=== PATIENT | female | born 1990 | race Caucasian/White ===

== ENCOUNTER 2017-02-04 17:52 | Emergency (ER) | payer SELFPAY ==
[~2017-02-04] VITALS: Ht 157.5 cm; Wt 64.4 kg
[~2017-02-04 17:52] MED LIST: CIPRO 500MG TA500 MG PO; FERROUS SULFAT325 M1 PO; FLAGYL500 MG PO; MACROBID 100MG100 MG PO; MOTRIN 400MG.400 MG PO; NICOTINE T21 MG/24 H TD; NOMEDS XX; PERCOCET 5/3251 EACH PO; PNV PRENATAL PL1 TAB PO; PRENATAL VITAMI1 TA3 PO; VICODIN 5/500 T1 TAB PO
--- OUTSIDE RECORDS SUMMARY | 2017-02-04 18:26 | External Medical Summary Rpt ---
Author Author , Organization [employer] Address Unknown Phone Unavailable Care Team Providers Care Apple Picker Name Role Phone ALSTON CHR, ALSTON CHR Unavailable Unavailable BEINEKE ANDRA, BEINEKE Unavailable Unavailable ANDRA LOVING ALL, LOVING ALL Unavailable Unavailable BRACKEN LELE, BRACKEN Unavailable Unavailable LELE SANDRA ANDRA, SANDRA Unavailable Unavailable ANDRA CLARK AGUSTO, CLARK AGUSTO Unavailable Unavailable LOZADA DON, LOZADA DON Unavailable Unavailable CHIPPS PONCHO & Unavailable Unavailable DUBILIER, [facility] DUBILIER IVEY MARCEL, IVEY Unavailable Unavailable MARCEL PRADO MAR, Unavailable Unavailable PRADO MAR [facility] Unavailable Unavailable PHYSICIANS, [facility] COPPAGE, ALVIN H, Unavailable Unavailable COPPAGE, ALVIN H [facility], Unavailable Unavailable [facility] JULIEN JORGE, Unavailable Unavailable JULIEN JORGE [facility] # [id number], Unavailable Unavailable [facility] # [id number] KIMMY, MARIHELEN, Unavailable Unavailable KIMMY, MARIHELEN FEEBACK REE, FEEBACK Unavailable Unavailable REE ALDEN ANT, ALDEN Unavailable Unavailable ANT LISSETH ZIMMER, Unavailable Unavailable LISSETH ZIMMER DARNELL, MAYO Unavailable Unavailable DARNELL MAYO DARNELL, MAYO Unavailable Unavailable DARNELL KARINE ANDUJAR MD, Unavailable Unavailable KARINE ANDUJAR MD MILDRED DARNELL, MILDRED DARNELL Unavailable Unavailable HUMPHREY EDW, HUMPHREY EDW Unavailable Unavailable PIETER HUMPHREY HALL, Unavailable Unavailable PIETER Hunter HARPEL MADALYN, HARPEL Unavailable Unavailable MADALYN [facility] Unavailable Unavailable INC, [facility] Unavailable Unavailable CARE, [place], [facility], IN [facility], Unavailable Unavailable [facility] KRISTINA CHAUDHARY, KRISTINA CHAUDHARY Unavailable Unavailable [facility] # Unavailable Unavailable [id number], [facility] # [id number] LOWE LELE, LOWE LELE Unavailable Unavailable MCDANIEL EMMA, MCDANIEL Unavailable Unavailable KAVON GURROLA Unavailable Unavailable HEIDI, HEIDI Unavailable Unavailable NATALIE BELTRE, NATALIE Unavailable Unavailable MARGO GREY HILTON, Unavailable Unavailable MARGO Ruiz OAK ALL, OAK ALL Unavailable Unavailable OSTERLUND MAR, Unavailable Unavailable [facility] PARK LATRELL, PARK LATRELL Unavailable Unavailable [facility], Unavailable [facility]available [facility], [facility] Unavailable [facility]available [facility] Unavailable Unavailable [facility], Unavailable Unavailable [facility] Unavailable Unavailable [facility], [facility] ELISABETH THO, ELISABETH Unavailable Unavailable THO GAVIRIA JOSH, GAVIRIA JOSH Unavailable Unavailable [facility] Unavailable [facility] Unavailable Unavailable [facility], [facility], Unavailable Unavailable [facility] Unavailable Unavailable CLIENT CARE REPRESENTATIVE , [facility] CLIENT CARE REPRESENTATIVE [facility] Unavailable Unavailable [facility]ENTER, [facility] Unavailable Unavailable PHYSICIANS, [facility] . ACOSTA DAMIAN, Unavailable Unavailable . ACOSTA DAMIAN ELLIS GRE, ELLIS Unavailable Unavailable [facility] THRELKELD II, Unavailable Unavailable [facility] Unavailable Unavailable [facility], [facility] KAREN SCO, KAREN SCO Unavailable Unavailable WILLOBY DARNELL, WILLOBY Unavailable Unavailable DARNELL Purpose Continuity of Care Document - 12-01-2009 through 2016 Problems Code Diagnosis DOS Provider Status B354 TINEA 12-16-2016 [facility] CORPORIS EMERGENCY PHYSICIANS N10 ACUTE 10-10-2016 [facility] PYELONEPHRI EMERGENCY TIS PHYSICIANS R112 NAUSEA WITH 10-10-2016 [facility] VOMITING EMERGENCY UNSPECIFIED PHYSICIANS N390 URINARY 10-09-2016 TRACT [facility] INFECTION PHYSICIANS SITE NOT SPECIFIED R110 NAUSEA 10-09-2016 [facility] R300 DYSURIA 10-09-2016 [facility] Z6827 BODY MASS 10-09-2016 INDEX BMI [facility] 27.0-27.9 PHYSICIANS ADULT U22039 CHRONIC 07-03-2016 ST MIGRAINE [facility] W/O AURA PHYSICIANS NOT INTRACT W/O SM S22315 MIGRAINE 07-03-2016 UNS [facility] INTRACTABLE PHYSICIANS W/O STATUS MIGRAINOSUS M542 CERVICALGIA 03-27-2016 ST [facility] PHYSICIANS R590 LOCALIZED 03-27-2016 ENLARGED [facility] LYMPH NODES PHYSICIANS V981THO STRAIN 03-27-2016 MUSCLE FASC [facility] & TENDON PHYSICIANS NECK LEVL INIT ENC Z6826 BODY MASS 03-27-2016 INDEX BMI [facility] 26.0-26.9 PHYSICIANS ADULT Z302 ENCOUNTER 03-06-2016 [facility] STERILIZATI GROUP ON O80 ENCOUNTER 03-05-2016 [facility] FULL-TERM GROUP UNCOMPLICAT ED DELIVERY Z370 SINGLE LIVE 03-05-2016 [facility] Z3A39 39 WEEKS 03-05-2016 [facility] [id number] OTHER SPEC 02-24-2016 [facility] COND UNS TRIMESTER [id number] MATERNAL 02-24-2016 [facility] BREECH INC PRESENTATIO N NA/UNS Z3A00 WEEKS OF 02-24-2016 [facility] NOT SPECIFIED Z3480 ENC 02-21-2016 [facility] SUPERVISION PHYSICIANS OTH NORMAL GROUP PREG UNS TRIMESTER A33163 DRUG USE 02-14-2016 [facility] COMPLICATIN PHYSICIANS G GROUP UNS TRIMESTER M549 DORSALGIA 01-31-2016 [facility] UNSPECIFIED [facility] INC [id number] OTHER SPEC 01-31-2016 [facility] RELATED INC COND 3RD TRIMESTER O471 FALSE LABOR 01-31-2016 [facility] AT/AFTER PHYSICIANS 37 GROUP COMPLETED WEEKS GEST Z3A35 35 WEEKS 01-31-2016 [facility] [id number] OTHER SPEC 12-09-2015 [facility] COND 2ND TRIMESTER R109 UNSPECIFIED 12-09-2015 [facility] ABDOMINAL CO PAIN AMBULANCE TAXIN F14207P ABRASION 12-09-2015 [facility] LEFT KNEE [facility] INITIAL INC ENCOUNTER Z041 ENCOUNTER 12-09-2015 [place] EXAM&OBSERV MEDICAL FOLLOW IMAGING ASS TRANSPORT ACCIDENT Z3402 ENCOUNTER 12-09-2015 [facility], NORMAL PLLC FIRST PREG 2 TRIMESTER Z3483 ENC 12-09-2015 [facility] [place] [facility] OTH NORMAL INC 3 TRIMESTER Z3A27 27 WEEKS 12-09-2015 [place] GESTATION MEDICAL OF IMAGING ASS Z720 TOBACCO USE 12-09-2015 [facility] Z113 ENCOUNTER 12-05-2015 [facility] INFECTIONS SEXL MODE TRANSMISSN Z3201 ENCOUNTER 12-05-2015 [facility] TEST RESULT POSITIVE N3000 ACUTE 11-25-2015 [facility] CYSTITIS [facility], WITHOUT PLLC HEMATURIA O2312 INFECTIONS 11-25-2015 [facility] BLADDER IN [facility] INC SECOND TRIMESTER O2692 11-25-2015 [facility], CONDITIONS PLLC UNS 2ND TRIMESTER R1030 LOWER 11-25-2015 [place] ABDOMINAL MEDICAL PAIN IMAGING ASS UNSPECIFIED Z3A25 25 WEEKS 11-25-2015 [place] [facility]ATION [facility] OF IMAGING ASS 66748 CHEST PAIN 04-15-2015 [facility] UNSPECIFIED [facility] 71726 CONTUSION 04-15-2015 [facility]ION PHYSICIANS 80542 CHRONIC 03-11-2015 [facility] W/O AURA PHYSICIANS W/O INTRACTABLE W/O SM V242 ROUTINE 02-25-2015 [facility] FOLLOW-UP 6238 OTHER 11-15-2014 [place] SPECIFIED MEDICAL NONINFLAMMA IMAGING ASS TORY DISORDER VAGINA 6259 UNSPEC 11-15-2014 [place] [facility]ING ASS W/FEMALE GENITAL ORGANS 23410 PREMATURE 11-12-2014 [facility] SEPARATION PONCHO & OF PLACENTA DUBILIER WITH DELIVERY 54701 THREATENED 11-12-2014 [facility] PREMATURE CO LABOR AMBULANCE UNSPEC TAXIN EPIS CARE 40744 INFECTION 11-12-2014 [facility] OF AMNIOTIC PONCHO & CAVITY DUBILIER DELIVERED 58258 ABDOMINAL 11-12-2014 [facility] PAIN, CO UNSPECIFIED AMBULANCE SITE TAXIN V237 INSUFFICIEN 11-12-2014 KARINE Ding T [facility] RODRIGUEZ CARE V240 11-12-2014 KARINE CRAWFORD&NISSA ANDUJAR MD ATION IMMED AFTER DELIV 86778 UNSPECIFIED 11-04-2014 KARINE Ding ANTEPARTUM [facility]IM[facility] RODRIGUEZ HEMORRHAGE ANTEPARTUM 38044 OLIGOHYDRAM 11-04-2014 [place] NIOS, MEDICAL ANTEPARTUM IMAGING ASS 40298 ABNORM 11-04-2014 [place] HEART [facility]ICAL [facility] ASS RATE/RHYTHM ANTPRTM COND/COMP V221 SUPERVISION 02-28-Gray [facility] OF OTHER [facility] NORMAL INC 66157 OTH CURRENT 02-11-2014 ST MATERNAL [facility] CCE MED CTR CLIENT CARE REPRESENTATIVE W/[place] [address] TOBACCO USE 02-11-2014 ST D/O COMP [facility] PG MED CTR CLIENT CARE REPRESENTATIVE CHILDBIRTH/ ST PP DELIVERED 650 NORMAL 02-11-2014 ST DELIVERY [facility] PHYSICIANS 65966 FIRST-DEGRE 02-11-2014 ST E PERINEAL [facility] LACERATION MED CTR CLIENT CARE REPRESENTATIVE WITH ST DELIVERY V270 OUTCOME OF 02-11-2014 DELIVERY [facility] SINGLE PHYSICIANS LIVEBORN V8901 SPCT PROB 02-04-2014 ST W/AMNIOTIC [facility] CAVITY & PHYSICIANS MEMBRANE NOT FOUND 51139 OTHER 12-18-2013 [facility] SPECIFED COMPLICATIO N ANTEPARTUM 7295 PAIN IN 01-03-2012 [facility] TISSUES OF OF [facility] LIMB 22917 UNSPECIFIED 01-02-2012 ST SITE OF [facility] ANKLE MED CTR SPRAIN AND STRAIN 75751 PAIN IN 12-27-2011 [facility] JOINT, ASSOCIATES ANKLE AND OF [facility] FOOT 38962 SPRAIN AND 12-27-2011 ST STRAIN OF [facility] UNSPECIFIED MED CTR SITE OF FOOT 9599 INJURY 12-27-2011 RAD[facility] OTHER AND ASSOCIATES UNSPECIFIED OF [facility] UNSPECIFIED SITE 81913 MIGRAINE 12-25-2011 HEALTH UNSP W/O POINT INTRACT W/O FAMILY STATUS CARE, IN MIGRAINOSUS 02558 ASTHMA, 10-04-2011 ST UNSPECIFIED [facility] , MEDICALCENT UNSPECIFIED ER STATUS 5990 URINARY 10-04-2011 ST TRACT [facility] INFECTION MEDICALCENT SITE NOT ER SPECIFIED 26417 INFECTIONS 10-04-2011 ST GENITOURINA [facility] RY TRACT MEDICALCENT ER W/DELIV 55922 POOR 10-04-2011 ST GROWTH [facility] AFFECT MEDICALCENT MANAGEMENT ER MOTH DELIV V140 PERSONAL 10-04-2011 ST HISTORY OF [facility] [place] [address] UNSPECIFIED 09-24-2011 ST INFECTIVE [facility] OTITIS MEDICALCENT EXTERNA ER 3829 UNSPECIFIED 09-24-2011 [place] [address] OTH CURRENT 09-24-2011 ST MAT CONDS [facility] CLASSIFIABL MEDICALCENT E ELSW ER ANTPRTM 02368 TOB USE D/O 09-24-2011 ST COMP PG [facility] /PP MEDICALCENT ANTEPARTM ER COND/COMP V148 PERSONAL 09-24-2011 ST HISTORY [facility] ALLERGY OTH MEDICALCENT SPEC ER MEDICINAL AGTS V5869 LONG-TERM 09-24-2011 (CURRENT) [facility] USE OF MEDICALCENT OTHER ER MEDICATIONS 87283 OTHER 09-19-2011 SPECIFIED [facility] DISORDER OF MEDICALCENT KIDNEY AND ER URETER 50056 UNSPECIFIED 09-19-2011 ST ANTEPARTUM [facility] RENAL MEDICALCENT DISEASE ER V235 09-19-2011 ST WITH OTHER [facility] POOR MEDICALCENT REPRODUCTIV ER E HISTORY 26029 BREECH 09-04-2011 PRESENTATIO [facility] N W/O MEDICALCENT MENTION ER VERSION ANTPRTM 76514 UNS 09-04-2011 [facility] ABNORM MGMT MATERNAL MOTH ME ANTPRTM COND/COMP V239 UNSPECIFIED 09-04-2011 [facility] HIGH-RISK MATERNAL ME 5589 OTH&UNSPEC 08-11-2011 NONINFECTIO [facility] US MED CTR GASTROENTER ITIS&COLITI S 95120 UNSPECIFIED 08-11-2011 [facility] COMPLIC[facility] MED CTR N OF ANTEPARTUM 04278 ACUT 05-13-2011 PYELONEPHRI [facility] TIS W/O [facility] MED CTR RENAL MEDULRY NECROS 24127 UNSPECIFIED 05-13-2011 Randal [facility] PYELONEPHRI DAMIAN TIS 11417 INFECTIONS 05-13-2011 . [facility] GENITOURINA DAMIAN RY TRACT ANTEPARTUM 7242 LUMBAGO 05-03-2011 [facility] MED CTR 04125 PRECIPITATE 05-22-2010 LABOR, [facility] WITH MEDICALCENT DELIVERY ER V2389 SUPERVISION 05-16-2010 HEALTH OF OTHER POINT HIGH-RISK FAMILY CARE, IN V220 SUPERVISION 02-07-2010 [facility] OF NORMAL [facility] 27150 TOB USE D/O 01-13-2010 [facility] COMP PG MATERNAL /PP UNSPEC EPIS MEDICINE CARE/NA INC V2889 OTHER 01-13-2010 SPECIFIED [facility] MEDICAL[facility]ENT SCREENING ER 4660 ACUTE 12-28-2009 BRONCHITIS [facility] 51871 ABDOMINAL 12-28-2009 PAIN, LEFT [facility] LOWER MED CTR QUADRANT 8488 OTHER 12-28-2009 SPECIFIED [facility] SITES OF MED CTR SPRAINS AND STRAINS V7240 12-28-2009 EXAMINATION [facility] /TEST MED CTR UNCONFIRMED V2383 SUPERVISION 12-15-2009 [facility]ALTH HIGH-RISK [facility] OTH SPEC 12-01-2009 [facility] COMP MATERNAL ME UNSPEC EPISODE CARE V283 ENCOUNTER 12-01-2009 ROUTINE [facility] SCREEN MEDICALCENT MALFORMATIO ER N ULTRASONIC M54.2 Cervicalgia M54.40 Lumbago with sciatica, unspecified side N12 Tubulo-inte rstitial nephritis, not specified as acute or chronic R11.2 Nausea with vomiting, unspecified R30.0 Dysuria R59.0 Localized enlarged lymph nodes S16.1XXA Strain of muscle, fascia and tendon at neck level, initial encounter Medications Na ND Rx Da Fi Fi Am Da Di Ph RX Ph St me C No te ll ll ou ys ag ar # ys at rm s nt no ma ic us Or Da si cy ia de te s n re d WA 59 03 04 30 7 00 KE Ac OC 74 -1 -1 .0 00 NT ti HL 60 8- 4- 00 00 UC ve OR 11 20 20 85 [place] PE 50 17 17 30 RA 6 91 CV ZI S NE PH AR 10 MA CY MG LL TA C, B DB A CV S PH AR MA CY #0 54 37 WA 65 03 03 25 4 00 KE Ac OM 16 -0 -3 .0 00 NT ti ET 20 6- 1- 00 00 UC ve ROMERO 52 20 20 85 [place] ZI 11 17 17 33 NE 0 65 CV S 25 PH AR MG MA CY TA BL LL ET C, DB A CV S PH AR MA CY #0 54 37 [place] 50 02 03 6. 5 00 TO Ac IT 11 -2 -2 00 00 TA ti HR 10 8- 4- 0 00 L ve OM 78 20 20 94 CA YC 75 17 17 29 RE IN 1 72 PH 25 AR 0 MA MG CY TA #5 BL ET HY 00 02 03 [address] 40 -2 -2 .0 00 TA ti OC 60 8- 4- 00 00 L ve OD 12 20 20 94 CA ON 40 17 17 29 RE -A 1 73 CE PH TA AR ID MA NO CY PH #5 7. 5- 32 5 CI 65 02 03 14 7 00 KE Ac WA 86 -2 -1 .0 00 NT ti OF 20 1- 7- 00 00 UC ve LO 07 20 20 87 [place] XA 70 17 17 37 CI 1 74 CV N S HC PH L AR 50 MA 0 CY MG LL TA C, B DB A CV S PH AR MA CY #0 54 37 ON 65 02 03 10 2 00 KE Ac DA 86 -2 -1 .0 00 NT ti NS 20 1- 7- 00 00 UC ve ET 39 20 20 87 [place] RO 01 17 17 37 N 0 75 CV OD S T PH 4 AR MG MA CY TA BL LL ET C, DB A CV S PH AR MA CY #0 54 37 CL 63 01 02 28 7 00 TO Ac IN 30 -2 -2 .0 00 TA ti DA 40 7- 4- 00 00 L ve MY 69 20 20 93 CA CI 20 17 17 98 RE N 1 86 HC PH L AR 15 MA 0 CY MG #5 CA PS UL E HY 00 01 02 6. [address] 40 -2 -2 00 00 TA ti OC 60 7- 4- 0 00 L ve OD 12 20 20 93 CA ON 40 17 17 98 RE -A 1 87 CE PH TA AR ID MA NO CY PH #5 7. 5- 32 5 CL 63 12 01 28 7 00 TO Ac IN 30 -2 -2 .0 00 TA ti DA 40 7- 0- 00 00 L ve MY 69 20 20 93 CA CI 20 16 17 66 RE N 1 99 HC PH L AR 15 MA 0 CY MG #5 CA PS UL E HY 00 12 01 10 [address] 40 -2 -2 .0 00 TA ti OC 60 7- 0- 00 00 L ve OD 12 20 20 93 CA ON 40 16 17 67 RE -A 1 00 CE PH TA AR ID MA NO CY PH #5 7. 5- 32 5 CV 50 12 01 59 1 00 KE Ac S 42 -1 -1 .0 00 NT ti PE 81 8- 3- 00 00 UC ve RM 46 20 20 84 [place] ET 40 16 17 85 HR 6 05 CV IN S PH 1% AR MA LO CY TI ON LL C, DB A CV S PH AR MA CY #0 54 37 MA 00 10 10 2 8. 20 CV 58 WI Ac XA 00 -2 -2 00 S 96 LL ti LT 60 8- 8- 0 PH 54 OB ve 26 20 20 AR Y 10 71 11 11 MA ID 8 CY CH MG # EL LE TA 05 BL 43 ET 7 TO 31 10 10 2 60 30 CV 58 WI Ac PI 72 -2 -2 .0 S 94 LL ti RA 20 7- 7- 00 PH 97 OB ve MA 27 20 20 AR Y TE 96 11 11 MA ID 0 CY CH 50 # EL LE MG 05 43 TA 7 BL ET PE 00 10 10 1 59 1 CV 58 BU Ac RM 47 -2 -2 .0 S 90 RK ti ET 25 3- 6- 00 PH 83 E ve HR 24 20 20 AR BR IN 26 11 11 MA EN 7 CY NA 1% # N LO 05 TI 43 ON 7 PE 00 10 10 1 59 1 CV 58 BU Ac RM 47 -2 -2 .0 S 90 RK ti ET 25 3- 3- 00 PH 83 E ve HR 24 20 20 AR BR IN 26 11 11 MA EN 7 CY NA 1% # N LO 05 TI 43 ON 7 OX 00 10 10 0 15 4 CV 58 VE Ac YC 40 -1 -1 .0 S 82 RA ti OD 60 5- 5- 00 PH 29 X ve ON 51 20 20 AR II E- 20 11 11 MA I AC 1 CY WI ET # LL AM IA IN 05 M OP 43 J HE 7 N 5- 32 5 00 10 10 0 12 3 CV 58 VE Ac 40 -1 -1 .0 S 75 RA ti 60 0- 0- 00 PH 12 X ve 35 20 20 AR II 80 11 11 MA I 5 CY WI # LL IA 05 M 43 J 7 CL 00 10 10 0 21 7 CV 58 VE Ac IN 09 -1 -1 .0 S 75 RA ti DA 33 0- 0- 00 PH 13 X ve MY 17 20 20 AR II CI 10 11 11 MA I N 1 CY WI HC # LL L IA 15 05 M 0 43 J MG 7 CA PS UL E CE 68 09 09 0 40 10 CV 58 SO Ac PH 18 -2 -2 .0 S 57 WE ti AL 00 6- 6- 00 PH 71 R ve EX 12 20 20 AR DA IN 20 11 11 MA 2 CY D 50 # 0 MG 05 43 CA 7 PS UL E 00 09 09 0 15 2 CV 58 SO Ac 40 -2 -2 .0 S 57 WE ti 60 6- 6- 00 PH 72 R ve 35 20 20 AR DA 70 11 11 MA 5 CY D # 05 43 7 ON 55 09 09 0 10 25 CV 58 SO Ac DA 11 -2 -2 .0 S 57 WE ti NS 10 6- 6- 00 PH 73 R ve ET 15 20 20 AR DA RO 33 11 11 MA N 0 CY D HC # L 4 05 MG 43 7 TA BL ET 00 09 09 0 15 2 CV 58 SW Ac 40 -1 -1 .0 S 46 EE ti 60 5- 5- 00 PH 39 NE ve 35 20 20 AR Y 70 11 11 MA GR 5 CY EG # OR Y 05 D 43 7 PH 65 09 09 0 6. 3 CV 58 SW Ac EN 16 -1 -1 00 S 46 EE ti AZ 20 5- 5- 0 PH 43 NE ve OP 52 20 20 AR Y YR 01 11 11 MA GR ID 0 CY EG IN # OR E Y 20 05 D 0 43 MG 7 TA B NI 00 09 09 0 14 7 CV 58 SW Ac TR 37 -1 -1 .0 S 46 EE ti OF 83 5- 5- 00 PH 44 NE ve UR 42 20 20 AR Y AN 20 11 11 MA GR TO 1 CY EG IN # OR Y MO 05 D NO 43 -M 7 CR 10 0 MG 00 04 04 0 15 3 CV 56 VE Ac 40 -1 -1 .0 S 74 RA ti 60 0- 0- 00 PH 75 X ve 35 20 20 AR II 80 11 11 MA I 5 CY WI # LL IA 05 M 43 J 7 00 04 04 0 15 4 CV 56 VE Ac 40 -0 -0 .0 S 68 RA ti 60 5- 5- 00 PH 83 X ve 35 20 20 AR II 80 11 11 MA I 5 CY WI # LL IA 05 M 43 J 7 CL 00 04 04 0 21 7 CV 56 VE Ac IN 09 -0 -0 .0 S 68 RA ti DA 33 5- 5- 00 PH 84 X ve MY 17 20 20 AR II CI 10 11 11 MA I N 1 CY WI HC # LL L IA 15 05 M 0 43 J MG 7 CA PS UL E IB 53 10 10 0 90 30 KR 61 BA Ac UP 74 -0 -0 .0 OG 38 RN ti RO 60 7- 8- 00 ER 27 ES ve FE 46 20 20 4 N 50 10 10 PH MA 60 5 AR RY 0 MA A MG CY # TA BL 14 ET 38 1 DO 45 10 10 0 60 30 KR 61 BA Ac CU 80 -0 -0 .0 OG 38 RN ti SA 20 ER 27 ES ve TE 48 20 20 5 67 10 10 PH MA SO 8 AR RY DI MA A UM CY # 10 0 14 MG 38 1 SO FT GE L OX 00 10 10 0 20 3 KR 23 RAHMAN Ac YC 40 -0 -0 .0 OG 53 LL ti OD 60 7 8 00 ER 84 IV ve ON 51 20 20 9 AN E- 20 10 10 PH AC 1 AR MO ET MA NI AM CY CA IN # OP HE 14 N 38 5- 1 32 5 WA 65 08 09 5 30 30 KR 61 ROMERO Ac EN 16 -0 -2 .0 OG 34 LL ti AT 20 3 00 ER 40 ve AL 66 20 20 0 ED [address] US MA C CY TA # BL ET 14 38 1 FE 00 09 09 1 90 30 KR 61 ROMERO Ac RR 67 -1 -2 .0 OG 36 LL ti OU 70 4 ER 83 ve S 07 20 20 6 ED RAHMAN 01 10 10 PH WA LF [address] AT MA C E CY 32 # 5 MG 14 38 TA 1 BL ET Procedures Procedure DOS Code Location Performer Comment THERAPEUT 91207 [facility] IC 7 [facility] II PROPHYLAC TIC/DX PHYSICIAN INJECTION S SUBQ/IM CULTURE 37246 [facility] BACTERIAL 7 [facility] QUANTTATI [facility] HEALTHCAR VE COLONY E MARILOU E MARILOU COUNT URINE CUL BACT 21591 [facility] AEROBIC 7 [facility] ADDL [facility] DEFINITIV E EDGE E EDGE E EA ISOL SUSCEPTIB 41466 [facility] LTY STDY 7 [facility] ANTIMICRB IAL [facility] MICRO/AGA E EDGE E EDGE R DILUTJ INJECTION J0696 [facility] 7 [facility] II CEFTRIAXO NE SODIUM PHYSICIAN PER 250 S MG INJECTION J1040 MCDANIEL 6 GREG[facility]IO CARTER METHYLPRE DNISOLONE PHYSICIAN ACETATE S 80 MG THERAPEUT 14527 MCDANIEL IC 6 [facility] CARTER PROPHYLAC TIC/DX PHYSICIAN INJECTION S SUBQ/IM INJECTION J2550 [facility] CARTER PROMETHAZ INE HCL PHYSICIAN UP TO 50 S MG OCCLUSION [id number] [facility] MARCUS 6 [facility] FALLOPIAN INC INC TUBES EXTRALUM DEV OPEN LIG/TRNSX 88699 [facility] IVEY J FLP 6 PHYSICIAN MARCEL TUBE S GROUP ABDL/VAG POSTPARTU M SPX ANES IPER 37383 [facility] FEEBACK LWR ABD 6 ANESTH REE W/LAPS OF THE TUBAL BLUE LIGATION/ TRANSECT VAGINAL 39179 [facility]Y DELIVERY 6 PHYSICIAN MARCEL ONLY S GROUP W/POSTPAR GIANCARLO CARE DELIVERY [id number] [facility] PRODUCTS 6 [facility] OF INC INC CONCEPTIO N EXTERNAL NEURAXIAL 12556 [facility] FEEBACK LABOR 6 ANESTH REE ANALG/ANE OF THE S PLND BLUE VAGINAL DELIVERY 31206 [place] INDER ALL BIOPHYSIC 6 MEDICAL AL IMAGING PROFILE ASS W/O NON-STRES S TESTING DOPPLER 04365 [facility] VELOCIMET 6 [facility] RY INC INC UMBILICAL ARTERY DRUG TST G0477 [facility] PRESUMP;C 6 PHYSICIAN PHYSICIAN PBL BEING S GROUP S GROUP READ DC OPT OBV ONLY PARTICLE 78512 [facility] AGGLUTINA 6 [facility] TION INC INC SCREEN EACH ANTIBODY CULTURE 50095 [facility] BACTERIAL 6 [facility] INC INC QUANTTATI VE COLONY COUNT URINE 57512 [facility] NONSTRESS 6 [facility] TEST INC INC EVAL C/V 21353 YIAMA [facility]WIN AMNIOTIC 6 [facility] FLUID INC INC PROTEIN QUAL EA SPECIMEN TOBACCO 33127 [facility] USE 6 [facility] CESSATION INC INC INTERMEDI ATE 3-10 MINUTES URNLS DIP 55722 [facility]WIN 6 [facility] STICK/TAB INC INC LET REAGENT AUTO MICROSCOP Y GROUND A0425 SYLVIA SYLVIA MILEAGE 6 CO CO PER AMBULANCE AMBULANCE STATUTE TAXIN TAXIN MILE DOPPLER 07757 [facility] ALL VELOCIMET 6 MEDICAL RY IMAGING UMBILICAL ASS ARTERY AMB A0427 SYLVIA SYLVIA SERVICE 6 CO CO ALS AMBULANCE AMBULANCE EMERGENCY [place] 1 [place] [address] [facility] TRUONGJULIEN 6 MEDICAL JORGE UTERUS IMAGING LIMITED ASS 1/> FETUSES 99207 [facility] ALL BIOPHYSIC 6 MEDICAL AL IMAGING PROFILE ASS W/O NON-STRES S TESTING INF AGT G0432 YAIMA ERWIN AB DETECT 6 [facility] EIA TECH INC INC HIV-1&/HI V-2 SCR OBSTETRIC 85640 YAIMA ERWIN PANEL 6 [facility] INC INC COLLECTIO 11403 YAIMA ERWIN N VENOUS 6 [facility] BLOOD INC INC VENIPUNCT URE DRUG TST G0477 [facility] PRES[facility];C 6 PHYSICIAN MARCEL PBL BEING S GROUP READ DC OPT OBV ONLY IADNA 32025 [facility], NEISSERIA 6 [facility] GONORRHOE AE AMPLIFIED PROBE TQ IADNA 30518 [facility], [facility], CHLAMYDIA 6 [facility] TRACHOMAT IS AMPLIFIED PROBE TQ CYTP C/V 47665 [facility], [facility], AUTO THIN 6 [facility] LYR PREPJ SCR MNL RESCR [place]YS [place] PREG 61450 YAIMA ERWIN UTERUS 6 [facility] W/DETAIL INC INC YENY 1ST GESTATION US PREG 95696 [facility] LOVING ALL UTERUS 6 MEDICAL AFTER 1ST IMAGING TRIMEST ASS GESTATION SUSCEPTIB 22945 YAIMA ERWIN LTY STDY 6 [facility] ANTIMICRB INC INC IAL MICRO/AGA R DILUTJ URNLS DIP 95391 [facility]A ERWIN 6 [facility] STICK/TAB INC INC LET REAGENT AUTO MICROSCOP Y TISS CECELIA 27066 YAIMA ERWIN SLIDE 6 [facility] SAMPS INC INC SKN/HR/NL S FNGI/ECTO PARASIT SMR PRIM 14411 YAIMA ERWIN SRC WET 6 [facility] MOUNT INC INC NFCT AGT CULTURE 32270 YAIMA ERWIN BCT 6 [facility] ISOL&PRSM INC INC PTV ID ISOLATE EA URINE CULTURE 43188 YAIMA YAIMA BACTERIAL 6 [facility] INC INC QUANTTATI VE COLONY COUNT URINE CULTURE [address] BACTERIAL 6 [facility] QUANTTATI CLIENT CARE REPRESENTATIVE ST CLIENT CARE REPRESENTATIVE ST VE COLONY COUNT URINE RADIOLOGI 96192 RADIOLOGY KAREN SCO C EXAM 5 CHEST 2 ASSOCIATE VIEWS S OF NOTH FRONTAL&L ATERAL CYTP C/V 12775 [facility], [facility] [employer] [place] [address] [place] IV[facility] TRANSVAGI 5 MEDICAL ANDRA NAL IMAGING ASS GROUND A0425 SYLVIA SYLVIA MILEAGE 5 CO CO PER AMBULANCE AMBULANCE STATUTE TAXIN TAXIN MILE AMBULANCE A0429 SYLVIA SYLVIA SERVICE 5 CO CO BLS AMBULANCE AMBULANCE EMERGENCY TAXIN TAXIN TRANSPORT DELIVERY 06022 KARINE ANDUJAR PLACENTA 5 PRATIMA RODRIGUEZ MADALYN SEPARATE PROCEDURE LEVEL V 76626 CHIPPS MILDRED DARNELL SURG 5 PONCHO & PATHOLOGY MARIANAILILEON GROSS&DARNELL ROSCOPIC EXAM 74113 [place] [facility] 5 MEDICAL JORGE AL IMAGING PROFILE ASS W/O NON-STRES S TESTING INITIAL 25834 KARINE ANDUJAR OBSERVATI 5 PRATIMA RODRIGUEZ MADALYN ON CARE/DAY 50 MINUTES GONADOTRO 20412 YAIMA ERWIN PIN 5 [facility] CHORIONIC INC INC QUANTITAT ALFREDO COLLECTIO 04511 YAIMA ERWIN N VENOUS 5 [facility] BLOOD INC INC VENIPUNCT URE OTHER [address] MANUALLY 4 GREG[facility]IO [facility]REG[facility]IO ASSISTED MED CTR MED CTR DELIVERY CLIENT CARE REPRESENTATIVE ST CLIENT CARE REPRESENTATIVE ST VAGINAL [address] ST PRADO DELIVERY 4 GREGORIO MAR [place] [address] [address] LOZADA DON SURG 4 GREGOROI PATHOLOGY MED CTR GROSS&DARNELL ROSCOPIC EXAM NEURAXIAL 27208 [facility] 4 NT ANALG/ANE ANESTHESI S PLND OLOGIST VAGINAL DELIVERY FERN TEST Q0114 [facility] 4 GREGORIO THO PHYSICIAN S SBSQ 21159 [facility] OBSERVATI 4 GREGORIO THO ON CARE/DAY PHYSICIAN 25 S MINUTES 32259 [facility] NONSTRESS 4 GREGORIO THO TEST PHYSICIAN S RADEX 77424 [facility] RADIOLOGY CALCANEUS 2 MINIMUM ASSOCIATE ASSOCIATE 2 VIEWS S OF NOTH S OF NOTH RADEX 98301 [facility] RADIOLOGY FOOT 2 COMPLETE ASSOCIATE ASSOCIATE MINIMUM 3 S OF NOTH S OF NOTH VIEWS RADEX 55156 [facility] RADIOLOGY ANKLE 2 COMPLETE ASSOCIATE ASSOCIATE MINIMUM 3 S OF NOTH S OF NOTH VIEWS GROUND A0425 [facility] MILEAGE 2 FIRE FIRE PER DEPT DEPT STATUTE MILE AMBULANCE A0429 [facility] SERVICE 2 FIRE FIRE BLS DEPT DEPT EMERGENCY TRANSPORT OTHER [address] ST MANUALLY 2 GREGORIO GREGORIO ASSISTED DELIVERY MEDICALCE MEDICALCE NTER NTER INJECTION J0696 ST 2 GREGORIO GREGORIO CEFTRIAXO NE SODIUM MEDICALCE MEDICALCE PER 250 NTER NTER MG THERAPEUT 14624 ST IC 2 GREGORIO GREGORIO PROPHYLAC TIC/DX MEDICALCE MEDICALCE INJECTION NTER NTER SUBQ/IM US PREG 80455 [facility] GAVIRIA JOSH UTERUS 2 MATERNAL REAL TIME ME F/U TRNSABDL PER FETUS US PREG 02741 [facility] GAVIRIA JOSH UTERUS 2 MATERNAL W/DETAIL ME YENY 1ST GESTATION GLUCOSE 23440 [facility] TOLERANCE 2 DIAGNOSTI DIAGNOSTI TEST GTT CS CS 3 SPECIMENS CUL 70746 [facility] PRSMPTV 2 DIAGNOSTI DIAGNOSTI PTHGNC CS CS ORGANISM SCRN W/COLONY ESTIMJ IADNA 44369 [facility] MULTIPLE 2 DIAGNOSTI DIAGNOSTI ORGANISMS CS CS DIRECT PROBE TQ CULTURE 71423 [facility] BACTERIAL 2 DIAGNOSTI DIAGNOSTI CS CS QUANTTATI VE COLONY COUNT URINE OBSERVATI 75806 [facility] ALL ON/INPATI 1 [facility] ENT [facility] CARE [address] BACTERIAL 1 GREGORIO GREGORIO DAMIAN DAMIAN QUANTTATI VE COLONY COUNT URINE BASIC [address] METABOLIC 1 GREGORIO GREGORIO PANEL DAMIAN DAMIAN CALCIUM TOTAL BLOOD [address] COUNT 1 [place] GREGORIO COMPLETE DAMIAN DAMIAN AUTO&AUTO DIFRNTL WBC THERAPEUT [address] IC 1 GREGORIO GREGORIO INJECTION DAMIAN DAMIAN [place] [address] INFUSION 1 GREGORIO GREGORIO THERAPY/P DAMIAN DAMIAN ROPHYLAXI S /DX 1ST TO [address] 1 GREGORIO GREGORIO STICK/TAB DAMIAN DAMIAN LET RGNT NON-AUTO W/O MICRSCP COLLECTIO [address] N VENOUS 1 GREGORIO GREGORIO BLOOD DAMIAN DAMIAN VENIPUNCT URE URINE [address] [facility] [address] 1 GREGORIOSTEPHEN FIELDSTH TEST DAMIAN DAMIAN VISUAL COLOR CMPRSN METHS NEURAXIAL 00631 [facility] NT ANALG/ANE ANESTHESI S PLND OLOGIST VAGINAL DELIVERY OTHER 7359 [facility] MANUALLY 0 GREGORIO GREGORIO ASSISTED DELIVERY MEDICALCE MEDICALCE NTER NTER REPAIR OF 7569 [facility] OTHER 0 GREGORIO GREGORIO CURRENT OBSTETRIC MEDICALCE MEDICALCE NTER NTER LACERATIO N OTHER 7309 [facility] ARTIFICIA 0 GREGORIO GREGORIO L RUPTURE OF MEDICALCE MEDICALCE MEMBRANES NTER NTER OTHER 9649 [facility] GENITOURI 0 GREGORIO GREGORIO NARY INSTILLAT MEDICALCE MEDICALCE ION NTER NTER URNLS DIP 77898 [facility] 0 POINT STICK/TAB FAMILY LET RGNT CARE, IN NON-AUTO W/O MICRSCP URNLS DIP 67489 [facility] EDW 0 POINT STICK/TAB FAMILY LET RGNT CARE, IN NON-AUTO W/O MICRSCP URNLS DIP 70296 [facility] HUMPHREY EDW 0 POINT STICK/TAB FAMILY LET RGNT CARE, IN NON-AUTO W/O MICRSCP IADNA [address] NEISSERIA 0 GREGORIO GREGORIO GONORRHOE MEDICALCE MEDICALCE AE NTER NTER AMPLIFIED PROBE TQ IADNA [address] STREPTOCO 0 GREGORIO GREGORIO CCUS GROUP B MEDICALCE MEDICALCE AMPLIFIED NTER NTER PROBE TQ BLOOD 06432 [facility] EDW COUNT 0 POINT HEMOGLOBI FAMILY N CARE, IN IADNA [address] CHLAMYDIA 0 GREGORIO GREGORIO TRACHOMAT MEDICALCE MEDICALCE IS NTER NTER AMPLIFIED PROBE TQ MOLEC [address] ISOL/XTRJ 0 GREGORIO GREGORIO HP NUCLEIC MEDICALCE MEDICALCE ACID EA NTER NTER TYPE URNLS DIP 26994 [facility] EDW 0 POINT STICK/TAB FAMILY LET RGNT CARE, IN NON-AUTO W/O MICRSCP URNLS DIP 10225 [facility] EDW 0 POINT STICK/TAB FAMILY LET RGNT CARE, IN NON-AUTO W/O MICRSCP URNLS DIP 20228 [facility], 0 POINT [place]WARD C STICK/TAB FAMILY LET RGNT CARE, NON-AUTO INC. W/O MICRSCP COLLECTIO 82004 [facility], N VENOUS 0 POINT EDWARD C BLOOD FAMILY VENIPUNCT CARE, URE INC. URNLS DIP 39436 [facility], 0 POINT [place] C STICK/TAB FAMILY LET RGNT CARE, NON-AUTO INC. W/O MICRSCP GLUCOSE [address] POST 0 GREGORIO GREGORIO GLUCOSE DOSE MEDICALCE MEDICALCE NTER NTER URNLS DIP 84091 [facility], 0 POINT MARGO A STICK/TAB FAMILY LET RGNT CARE, NON-AUTO INC. W/O MICRSCP US PREG [address] UTERUS 0 GREGORIO GREGORIO W/DETAIL MEDICALCE MEDICALCE YENY 1ST NTER NTER GESTATION BLOOD [address] COUNT 0 [facility] AUTO&AUTO DIFRNTL WBC GONADOTRO 56258 ST PIN 0 [facility] QUANTITAT ALFREDO URNLS DIP [address] [facility] STICK/TAB [facility] LET RGNT NON-AUTO W/O MICRSCP COLLECTIO 78728 ST N VENOUS 0 [facility] VENIPUNCT URE IADNA 45182 [facility] NEISSERIA 0 [facility] GONORRHOE MEDICALCE MEDICALCE AE NTER NTER AMPLIFIED PROBE TQ COLLECTIO 08896 [facility], N VENOUS 0 POINT [facility] BLOOD [facility] VENIPUNCT CARE, URE INC. URNLS DIP 58150 [facility], 0 POINT [place] STICK/TAB FAMILY LET RGNT CARE, NON-AUTO INC. W/O MICRSCP IADNA 61840 [facility] CHLAMYDIA 0 [facility] TRACHOMAT MEDICALCE MEDICALCE IS NTER NTER AMPLIFIED PROBE TQ US PREG 08276 [facility] UTERUS 0 [facility] AFTER 1ST TRIMEST MEDICALCE MEDICALCE 1/ NTER NTER GESTATION Encounters Encounter Start End Date Code Location Performer Type Date EMERGENCY 97055 [facility] 7 7 EMERGENCY DEPARTMEN T VISIT PHYSICIAN MODERATE S SEVERITY EMERGENCY 13232 [facility] 7 7 EMERGENCY DEPARTMEN T VISIT PHYSICIAN HIGH/URGE S NT SEVERITY [facility] 7 7 [facility] 41332 [facility] 7 7 GREGORIO II T VISIT 25 PHYSICIAN MINUTES S OFFICE [address] [facility] OUTPATIEN 6 6 GREG[facility]IO EMMA T VISIT 15 PHYSICIAN MINUTES S OFFICE 77026 [facility] OUTPATIEN 6 6 [facility]IO EMMA T VISIT 15 PHYSICIAN MINUTES S HOSPITAL YAIMA - 6 6 [facility] INPATIENT [facility] YAIMA - 6 6 [facility] OUTPATIEN [facility] T OFFICE 30764 [facility] LONI OUTPATIEN 6 6 PHYSICIAN MARCEL T VISIT S GROUP 15 MINUTES HOSPITAL Y[facility]IMA - 6 6 [facility] OUTPATIEN [facility] T OFFICE 50007 [facility] IVEY OUTPATIEN 6 6 PHYSICIAN MARCEL T VISIT S GROUP 15 MINUTES HOSPITAL YAIMA - 6 6 [facility] OUTPATIEN [facility] YAIMA - 6 6 [facility] OUTPATIEN [facility] T EMERGENCY 01666 YAIMA DEPT 6 6 [facility] VISIT INC HIGH SEVERITY& THREAT FUNCJ EMERGENCY 96200 [facility] 6 6 PHYSICIAN DEPARTMEN S, [facility] HIGH/URGE NT SEVERITY HOSPITAL YAIMA - 6 6 [facility] OUTPATIEN [facility] T OFFICE 04686 [facility] 6 6 PHYSICIAN MARCEL T VISIT S GROUP 25 MINUTES EMERGENCY 15219 [facility] 6 6 PHYSICIAN DEPARTMEN S, PLLC T VISIT HIGH/URGE NT SEVERITY HOSPITAL Y[facility]IMA - 6 6 [facility] OUTPATIEN [facility] T EMERGENCY 07909 Y[facility]IMA 6 6 [facility] DEPARTMEN INC T VISIT LOW/MODER SEVERITY HOSPITAL ST - OTHER 6 6 [facility] MED CTR CLIENT CARE REPRESENTATIVE ST OFFICE 86918 [facility] OUTPATIEN 6 6 GREGORIO T VISIT 25 PHYSICIAN MINUTES S EMERGENCY 23499 [facility] 6 6 EMERGENCY ANT DEPARTMEN T VISIT PHYSICIAN HIGH/URGE S NT SEVERITY EMERGENCY 52223 [facility] 5 5 EMERGENCY ALEXSANDER DEPARTMEN T VISIT PHYSICIAN HIGH/URGE S NT SEVERITY OFFICE 17[address] [facility] OUTPATIEN 5 5 GREGORIO T VISIT 15 PHYSICIAN MINUTES S OFFICE 24414 [facility] OUTPATIEN 5 5 GREGORIO T VISIT 25 PHYSICIAN MINUTES S HOSPITAL YAIMA - 5 5 [facility] OUTPATIEN INC H[facility]PITAL ST - 4 4 [facility] INPATIENT MED CTR CLIENT CARE REPRESENTATIVE ST EMERGENCY 43329 [facility] 4 4 DARNELL DARNELL DEPARTMEN T VISIT HIGH/URGE NT SEVERITY EMERGENCY 02157 [facility] 2 2 GREGORIO LELE DEPARTMEN MED CTR T VISIT MODERATE SEVERITY EMERGENCY 30938 [facility] 2 2 GREGORIO ANDRA DEPARTMEN MED CTR T VISIT MODERATE SEVERITY OFFICE 24322 [facility] OUTPATIEN 2 2 POINT T VISIT FAMILY 25 CARE, IN MINUTES EMERGENCY 28[address] [facility] 2 2 GREGORIO MAR DEPARTMEN MED CTR T VISIT HIGH/URGE NT SEVERITY HOSPITAL ST - 2 2 GREG[facility]IO INPATIENT MEDICALCE NTER EMERGENCY 61106 ST 2 2 GREGORIO DEPARTMEN T VISIT MEDICALCE LOW/MODER NTER SEVERITY HOSPITAL ST - 2 2 [facility]IO OUTPATIEN T MEDICALCE NTER HOSPITAL ST - 2 2 [facility]IO OUTPATIEN T MEDICALCE NTER OFFICE 47761 [facility] OUTPATI[facility] 2 2 MATERNAL T NEW [address] - 2 2 GREG[facility]IO OUTPATIEN T MEDICALCE NTER OFFICE 29804 [facility] OUTPATI[facility] 1 1 GREGORIO DARNELL T VISIT 15 PHYSICIAN [address] S [facility] - 1 1 [facility] OUTPATIEN DAMIAN T EMERGENCY 66974 ST. 1 1 GREG[facility]IO [facility] DAMIAN T VISIT HIGH/URGE NT SEVERITY EMERGENCY 57960 [facility] 1 1 [facility] T VISIT MODERATE SEVERITY HOSPITAL ST - 0 0 GREG[facility]IO INPATIENT MEDICALCE NTER OFFICE 74543 [facility] EDW OUTPATIEN 0 0 POINT T VISIT FAMILY 10 CARE, IN MINUTES OFFICE 42905 [facility] EDW OUTPATIEN 0 0 POINT T VISIT FAMILY 10 CARE, IN MINUTES HOSPITAL ST - 0 0 GREGORIO OUTPATIEN T MEDICALCE NTER OFFICE 44496 [facility] EDW OUTPATIEN 0 0 POINT T VISIT FAMILY 10 CARE, IN MINUTES OFFICE 47550 [facility] EDW OUTPATIEN 0 0 POINT T VISIT FAMILY 10 CARE, IN MINUTES OFFICE 39864 [facility] EDW OUTPATIEN 0 0 POINT T VISIT FAMILY 10 CARE, IN MINUTES OFFICE 07506 [facility], OUTPATIEN 0 0 POINT EDWARD C T VISIT FAMILY 10 CARE, MINUTES INC. OFFICE 78894 [facility], OUTPATIEN 0 0 POINT EDWARD C T VISIT FAMILY 10 CARE, MINUTES INC. HOSPITAL ST - 0 0 GREGORIO OUTPATIEN T MEDICALCE NTER OFFICE 97672 [facility], OUTPATIEN 0 0 POINT MARGO A T VISIT FAMILY 10 CARE, MINUTES INC. HOSPITAL ST - 0 0 GREGORIO OUTPATIEN T MEDICALCE NTER EMERGENCY 83867 ST 0 0 [facility] T VISIT HIGH/URGE NT [facility] ST - 0 0 [facility] T OFFICE 35195 [facility] 0 0 [facility] T [facility]ISIT FAMILY [address] [place] [address], [facility] ST - 0 0 [facility] ST - 0 0 [facility]
--- OUTSIDE RECORDS SUMMARY | 2017-02-04 18:26 | External Medical Summary Rpt ---
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 Name Role Phone ALSTON CHR, ALSTON CHR [...] Unavailable Unavailable [facility]ULIEN [facility] # [id number], Unavailable Unavailable [facility] # [id number] KIMMY, MARIHELEN, Unavailable Unavailable KIMMY, MARIHELEN FEEBACK REE, FEEBACK Unavailable Unavailable REE ALDEN ANT, ALDEN Unavailable Unavailable ANT LISSETH ZIMMER, Unavailable Unavailable LISSETH ZIMMER DARNELL, MAYO Unavailable Unavailable DARNELL MAYO DARNELL, AMYO Unavailable Unavailable DARNELL KARINE ANDUJAR MD, Unavailable Unavailable KARINE ANDUJAR MD MILDRED DARNELL, MILDRED DARNELL Unavailable Unavailable HUMPHREY EDW, HUMPHREY EDW Unavailable Unavailable PIETER HUMPHREY HALL, Unavailable Unavailable PIETER Hunter HARPEL MADALYN, HARPEL Unavailable Unavailable MAADLYN [facility] Unavailable Unavailable INC, [facility] Un[facility] CARE, IN, [facility], IN [facility], Unavailable Unavailable [facility] KRISTINA CHAUDHARY, KRISTINA CHAUDHARY Unavailable Unavailable [facility] # Unavailable Unavailable [id number], [facility] # [id number] LOWE LELE, LOWE LELE Unavailable Unavailable MCDANIEL [...] [facility] Unavailable Unavailable [facility], [facility] ELISABETH THO, ELISABETH Unavailable Unavailable THO GAVIRIA JOSH, GAVIRIA JOSH Unavailable Unavailable [facility] Unavailable Unavailable [facility] Unavailable Unavailable [facility], [facility], Unavailable Unavailable [facility] Unavailable Unavailable [facility] , [facility] Unavailable Unavailable [facility], [facility] Unavailable Unavailable PHYSICIANS, [facility] . [place] [facility], Unavailable Unavailable . [place] [facility] ELLIS GRE, ELLIS Unavailable Unavailable GRE THRELKELD II, Unavailable Unavailable [facility]RELK[facility] II [facility] Unavailable Unavailable ME, [facility] KAREN SCO, KAREN SCO Unavailable Unavailable WILLOBY DARNELL, WILLOBY Unavailable Unavailable DARNELL Purpose Continuity of Care Document - 12-01-2009 through 2016 Problems Code Diagnosis DOS Provider Status B354 TINEA 12-16-2016 [facility] PHYSICIANS N10 ACUTE 10-10-2016 [facility] PYELONEPHRI EMERGENCY TIS PHYSICIANS R112 NAUSEA WITH 10-10-2016 [facility] VOMITING EMERGENCY UNSPECIFIED PHYSICIANS N390 URINARY 10-09-2016 TRACT [place] INFECTION PHYSICIANS SITE NOT SPECIFIED R110 NAUSEA 10-09-2016 [facility] PHYSICIANS R300 DYSURIA 10-09-2016 [facility] PHYS[facility] Z6827 BODY MASS 10-09-2016 INDEX BMI [place] 27.0-27.9 PHYSICIANS ADULT K71024 CHRONIC 07-03-2016 ST MIGRAINE [facility] W/O AURA PHYSICIANS NOT INTRACT W/O SM L68273 MIGRAINE 07-03-2016 UNS [facility] INTRACTABLE PHYSICIANS W/O STATUS MIGRAINOSUS M542 CERVICALGIA 03-27-2016 ST [facility] PHYSICIANS R590 LOCALIZED 03-27-2016 ENLARGED [facility] LYMPH NODES PHYSICIANS U326DXH STRAIN 03-27-2016 MUSCLE FASC [facility] & TENDON PHYSICIANS NECK LEVL INIT ENC Z6826 BODY MASS 03-27-2016 INDEX BMI [facility] 26.0-26.9 PHYSICIANS ADULT Z302 ENCOUNTER 03-06-2016 [facility] STERILIZATI GROUP ON O80 ENCOUNTER 03-05-2016 [facility] FULL-TERM GROUP UNCOMPLICAT ED DELIVERY Z370 SINGLE LIVE 03-05-2016 [facility] Z3A39 39 WEEKS 03-05-2016 [facility] T39602 OTHER SPEC 02-24-2016 [facility] COND UNS TRIMESTER [id number] MATERNAL 02-24-2016 [facility] BREECH INC PRESENTATIO N NA/UNS Z3A00 WEEKS OF 02-24-2016 [facility] NOT SPECIFIED Z3480 ENC 02-21-2016 [facility] SUPERVISION PHYSICIANS OTH NORMAL GROUP PREG UNS TRIMESTER A31247 DRUG USE 02-14-2016 [facility] COMPLICATIN PHYSICIANS G GROUP UNS TRIMESTER M549 DORSALGIA 01-31-2016 [facility]NSPECIFIED [facility] INC H36015 OTHER SPEC 01-31-2016 [facility] RELATED INC COND 3RD TRIMESTER O471 FALSE LABOR 01-31-2016 [facility] AT/AFTER PHYSICIANS 37 GROUP COMPLETED WEEKS GEST Z3A35 35 WEEKS 01-31-2016 [facility] G21187 OTHER SPEC 12-09-2015 [facility] COND 2ND TRIMESTER R109 UNSPECIFIED 12-09-2015 [facility] ABDOMINAL CO PAIN AMBULANCE TAXIN N05058A ABRASION 12-09-2015 [facility] LEFT KNEE [facility] INITIAL INC ENCOUNTER Z041 ENCOUNTER 12-09-2015 [place] EXAM&OBSERV MEDICAL FOLLOW IMAGING ASS TRANSPORT ACCIDENT Z3402 ENCOUNTER 12-09-2015 [facility] FR[facility]OSO PHYSICIANS, NORMAL PLLC FIRST PREG 2 TRIMESTER Z3483 ENC 12-09-2015 [place] [facility] OTH NORMAL INC 3 TRIMESTER Z3A27 27 WEEKS 12-09-2015 [place] [facility]ATION MEDICAL OF IMAGING ASS Z720 TOBACCO USE 12-09-2015 [facility] Z113 ENCOUNTER 12-05-2015 [facility] INFECTIONS SEXL MODE TRANSMISSN Z3201 ENCOUNTER 12-05-2015 [facility] TEST RESULT POSITIVE N3000 ACUTE 11-25-2015 [facility] CYSTITIS [facility]ICIANS, WITHOUT PLLC HEMATURIA O2312 INFECTIONS 11-25-2015 [facility] BLADDER IN [facility] INC SECOND TRIMESTER O2692 11-25-2015 [facility] RELATED PHYSICIANS, CONDITIONS PLLC UNS 2ND TRIMESTER R1030 LOWER 11-25-2015 [place] ABDOMINAL MEDICAL PAIN IMAGING ASS UNSPECIFIED Z3A25 25 WEEKS 11-25-2015 [place] [facility]ICAL OF IMAGING ASS 94550 CHEST PAIN 04-15-2015 [facility] UNSPECIFIED [facility] 95455 CONTUSION 04-15-2015 [facility] PHYSICIANS 28628 CHRONIC 03-11-2015 [facility] W/O AURA PHYSICIANS W/O INTRACTABLE W/O SM V242 ROUTINE 02-25-2015 [facility] FOLLOW-UP 6238 OTHER 11-15-2014 [place] SPECIFIED MEDICAL NONINFLAMMA IMAGING ASS TORY DISORDER VAGINA 6259 UNSPEC 11-15-2014 [facility] [facility] W/FEMALE GENITAL ORGANS 15592 PREMATURE 11-12-2014 [facility] SEPARATION PONCHO & OF PLACENTA DUBILIER WITH DELIVERY 48570 THREATENED 11-12-2014 [facility] PREMATURE CO LABOR AMBULANCE UNSPEC TAXIN EPIS CARE 19695 INFECTION 11-12-2014 [facility] OF AMNIOTIC PONCHO & CAVITY DUBILIER DELIVERED 12403 ABDOMINAL 11-12-2014 [facility] PAIN, CO UNSPECIFIED AMBULANCE SITE TAXIN V237 INSUFFICIEN 11-12-2014 KARINE Ding T PRATIMA RODRIGUEZ CARE V240 11-12-2014 KARINE CRAWFORD&NISSA ANDUJAR MD ATION IMMED AFTER DELIV 57044 UNSPECIFIED 11-04-2014 KARINE Ding ANTEPARTUM PR[facility]IMA RODRIGUEZ HEMORRHAGE ANTEPARTUM 97311 OLIGOHYDRAM 11-04-2014 [place] NIOS, MEDICAL ANTEPARTUM IMAGING ASS 90293 ABNORM 11-04-2014 [place] [facility] RATE/RHYTHM ANTPRTM COND/COMP V221 SUPERVISION 02-28-Gray ERWIN OF OTHER [facility] NORMAL INC 64553 OTH CURRENT 02-11-2014 ST MATERNAL [facility] CCE MED CTR [facility] W/DELIVERY ST 87663 TOBACCO USE 02-11-2014 ST D/O COMP [facility] PG MED CTR [facility] CHILDBIRTH/ ST PP DELIVERED 650 NORMAL 02-11-2014 ST DELIVERY [facility] PHYSICIANS 45280 FIRST-DEGRE 02-11-2014 ST E PERINEAL [facility] LACERATION MED CTR [facility] WITH ST DELIVERY V270 OUTCOME OF 02-11-2014 DELIVERY [facility] SINGLE PHYSICIANS LIVEBORN V8901 SPCT PROB 02-04-2014 ST W/AMNIOTIC [facility] CAVITY & PHYSICIANS MEMBRANE NOT FOUND 38701 OTHER 12-18-2013 [facility] SPECIFED COMPLICATIO N ANTEPARTUM 7295 PAIN IN 01-03-2012 [facility] TISSUES OF OF [facility] LIMB 44169 UNSPECIFIED 01-02-2012 ST SITE OF [facility] ANKLE MED CTR SPRAIN AND STRAIN 04723 PAIN IN 12-27-2011 [facility] JOINT, ASSOCIATES ANKLE AND OF [facility] FOOT 83149 SPRAIN AND 12-27-2011 ST STRAIN OF [facility] UNSPECIFIED MED CTR SITE OF FOOT 9599 INJURY 12-27-2011 RADIOLOGY OTHER AND ASSOCIATES UNSPECIFIED OF [facility] UNSPECIFIED SITE 37631 MIGRAINE 12-25-2011 HEALTH UNSP W/O POINT INTRACT W/O FAMILY STATUS CARE, IN MIGRAINOSUS 42458 ASTHMA, 10-04-2011 ST UNSPECIFIED [facility] , MEDICALCENT UNSPECIFIED ER STATUS 5990 URINARY 10-04-2011 ST TRACT [facility] INFECTION MEDICALCENT SITE NOT ER SPECIFIED 46505 INFECTIONS 10-04-2011 ST GENITOURINA [facility] RY TRACT MEDICALCENT ER W/DELIV 55283 POOR 10-04-2011 ST GROWTH [facility] AFFECT MEDICALCENT MANAGEMENT ER MOTH DELIV V140 PERSONAL 10-04-2011 ST HISTORY OF [facility] [address] UNSPECIFIED 09-24-2011 ST INFECTIVE [facility] OTITIS MEDICALCENT EXTERNA ER 3829 UNSPECIFIED 09-24-2011 [place] [address] OTH CURRENT 09-24-2011 ST MAT CONDS [facility] CLASSIFIABL MEDICALCENT E ELSW ER ANTPRTM 74425 TOB USE D/O 09-24-2011 ST COMP PG [facility] /PP MEDICALCENT ANTEPARTM ER COND/COMP V148 PERSONAL 09-24-2011 ST HISTORY [facility] ALLERGY OTH MEDICALCENT SPEC ER MEDICINAL AGTS V5869 LONG-TERM 09-24-2011 (CURRENT) [facility] USE OF MEDICALCENT OTHER ER MEDICATIONS 85328 OTHER 09-19-2011 SPECIFIED [facility] DISORDER OF MEDICALCENT KIDNEY AND ER URETER 93771 UNSPECIFIED 09-19-2011 ST ANTEPARTUM [facility] RENAL MEDICALCENT DISEASE ER V235 09-19-2011 ST WITH OTHER [facility] POOR MEDICALCENT REPRODUCTIV ER E HISTORY 89810 BREECH 09-04-2011 PRESENTATIO [facility] N W/O MEDICALCENT MENTION ER VERSION ANTPRTM 67991 UNS 09-04-2011 [facility] ABNORM MGMT MATERNAL MOTH ME ANTPRTM COND/COMP V239 UNSPECIFIED 09-04-2011 [facility] HIGH-RISK MATERNAL ME 5589 OTH&UNSPEC 08-11-2011 NONINFECTIO [place] US MED CTR GASTROENTER ITIS&COLITI S 99593 UNSPECIFIED 08-11-2011 [facility] COMPLICATIO MED CTR N OF ANTEPARTUM 74177 ACUT 05-13-2011 [facility] [place] TIS W/O [facility] MED CTR RENAL MEDULRY NECROS 86269 UNSPECIFIED 05-13-2011 Randal GREG[facility]IO PYELONEPHRI DAMIAN TIS 58017 INFECTIONS 05-13-2011 . [facility] GENITOURINA DAMIAN RY TRACT ANTEPARTUM 7242 LUMBAGO 05-03-2011 [facility] MED CTR 42222 PRECIPITATE 05-22-2010 LABOR, [facility] WITH MEDICALCENT DELIVERY ER V2389 SUPERVISION 05-16-2010 HEALTH OF OTHER POINT HIGH-RISK FAMILY CARE, IN V220 SUPERVISION 02-07-2010 HEALTH OF NORMAL POINT [facility]. 54094 TOB USE D/O 01-13-2010 [facility] COMP PG MATERNAL /PP UNSPEC EPIS MEDICINE CARE/NA INC V2889 OTHER 01-13-2010 SPECIFIED [facility] MEDICALCENT SCREENING ER 4660 ACUTE 12-28-2009 BRONCHITIS [facility] MED CTR 50265 ABDOMINAL 12-28-2009 PAIN, LEFT [facility] LOWER MED CTR QUADRANT 8488 OTHER 12-28-2009 SPECIFIED [facility] SITES OF MED CTR SPRAINS AND STRAINS V7240 12-28-2009 EXAMINATION [facility] /TEST MED CTR UNCONFIRMED V2383 SUPERVISION 12-15-2009 HEALTH HIGH-RISK POINT [facility] [address] OTH SPEC 12-01-2009 [facility] COMP MATERNAL ME [...] ia de te s n re d GA 59 03 04 30 7 00 KE Ac OC 74 -1 -1 .0 00 NT ti HL 60 8- 4- 00 00 UC ve OR 11 20 20 85 [place] PE 50 17 17 30 RA 6 91 CV ZI S NE PH AR 10 MA CY MG LL TA C, B DB A CV S PH AR MA CY #0 54 37 GA 65 03 03 25 4 00 KE [...] -A 1 73 CE PH TA AR WI MA NO CY PH #5 7. 5- 32 5 CI 65 02 03 14 7 00 KE Ac GA 86 -2 -1 .0 00 NT ti [...] -A 1 87 CE PH TA AR WI MA NO CY PH #5 7. 5- [...] -A 1 00 CE PH TA AR WI MA NO CY PH #5 7. 5- [...] AR Y 10 71 11 11 MA WI 8 CY CH MG # EL LE TA 05 BL 43 ET 7 TO 31 10 10 2 60 30 CV 58 WI Ac PI 72 -2 -2 .0 S 94 LL ti RA 20 7- 7- 00 PH 97 OB ve MA 27 20 20 AR Y TE 96 11 11 MA WI 0 CY CH 50 # EL LE [...] 14 N 38 5- 1 32 5 GA 65 08 09 5 30 30 KR [...] Procedure DOS Code Location Performer Comment THERAPEUT 44371 [facility] IC 7 GREG[facility]IO II PROPHYLAC TIC/DX PHYSICIAN INJECTION S SUBQ/IM CULTURE 09710 [facility] BACTERIAL 7 [facility] QUANTTATI [facility] HEALTHCAR VE COLONY E MARILOU E MARILOU COUNT URINE CUL BACT 20480 [facility] AEROBIC 7 [facility] ADDL [facility] HEALTHCAR DEFINITIV E EDGE E EDGE E EA ISOL SUSCEPTIB 80431 [facility] LTY STDY 7 [facility] ANTIMICRB IAL [facility] HEALTHCAR MICRO/AGA E EDGE E EDGE R DILUTJ INJECTION J0696 [facility] 7 GREG[facility]IO II CEFTRIAXO NE SODIUM PHYSICIAN PER 250 S MG INJECTION J1040 MCDANIEL 6 GREG[facility]IO CARTER METHYLPRE DNISOLONE PHYSICIAN ACETATE S 80 MG THERAPEUT 13911 MCDANIEL IC 6 [facility] CARTER PROPHYLAC TIC/DX PHYSICIAN INJECTION S SUBQ/IM INJECTION J2550 [facility] CARTER PROMETHAZ INE HCL PHYSICIAN UP TO 50 S MG OCCLUSION [id number] [facility] MARCUS 6 [facility] FALLOPIAN INC INC TUBES EXTRALUM DEV OPEN LIG/TRNSX 05058 [facility] IVEY J FLP 6 PHYSICIAN MARCEL TUBE S GROUP ABDL/VAG POSTPARTU M SPX ANES IPER 34569 [facility] FEEBACK LWR ABD 6 ANESTH REE W/LAPS OF THE TUBAL BLUE LIGATION/ TRANSECT VAGINAL 61069 [facility] IVEY DELIVERY 6 PHYSICIAN MARCEL ONLY S GROUP W/POSTPAR GIANCARLO CARE DELIVERY 11P4ILN [facility] REWIN PRODUCTS 6 [facility] OF INC INC CONCEPTIO N EXTERNAL NEURAXIAL 20389 [facility] FEEBACK LABOR 6 ANESTH REE ANALG/ANE OF THE S PLND BLUE VAGINAL DELIVERY 50286 [place] [facility] 6 MEDICAL AL IMAGING PROFILE ASS W/O NON-STRES S TESTING DOPPLER 13111 [facility]WIN VELOCIMET 6 [facility] RY INC INC UMBILICAL ARTERY DRUG TST G0477 [facility] PRESUMP;C 6 PHYSICIAN PHYSICIAN PBL BEING S GROUP S GROUP READ DC OPT OBV ONLY PARTICLE 89789 [facility] AGGLUTINA 6 [facility] TION INC INC SCREEN EACH ANTIBODY CULTURE 10722 [facility] ERWIN BACTERIAL 6 [facility] INC INC QUANTTATI VE COLONY COUNT URINE 47649 [facility] ERWIN NONSTRESS 6 [facility] TEST INC INC EVAL C/V 87800 [facility] AMNIOTIC 6 [facility] FLUID INC INC PROTEIN QUAL EA SPECIMEN TOBACCO 69770 [facility] ERWIN USE 6 [facility] CESSATION INC INC INTERMEDI ATE 3-10 MINUTES URNLS DIP 69011 [facility] ERWIN 6 [facility] STICK/TAB INC INC LET REAGENT AUTO MICROSCOP Y GROUND A0425 [facility] MILEAGE 6 CO CO PER AMBULANCE AMBULANCE STATUTE TAXIN TAXIN MILE DOPPLER 01747 [facility] ALL VELOCIMET 6 MEDICAL RY IMAGING UMBILICAL ASS ARTERY AMB A0427 [facility] [place] SERVICE 6 CO CO ALS AMBULANCE AMBULANCE EMERGENCY [place]SP[place] 1 [place] [address] [facility] TRUONGJULIEN 6 MEDICAL JORGE UTERUS IMAGING LIMITED ASS 1/> FETUSES 50315 [place] LOVING ALL BIOPHYSIC 6 MEDICAL AL IMAGING PROFILE ASS W/O NON-STRES S TESTING INF AGT G0432 [facility] ERWIN AB DETECT 6 [facility] EIA TECH INC INC HIV-1&/HI V-2 SCR OBSTETRIC 36210 [facility] ERWIN PANEL 6 [facility] INC INC COLLECTIO 67215 [facility] ERWIN N VENOUS 6 [facility] BLOOD INC INC VENIPUNCT URE DRUG TST G0477 [facility] PRES[facility]C 6 PHYSICIAN MARCEL PBL BEING S GROUP READ DC OPT OBV ONLY IADNA 93435 [facility] NEISSERIA 6 [facility] GONORRHOE AE AMPLIFIED PROBE TQ IADNA 19481 [facility], [facility] CHLAMYDIA 6 [facility] TRACHOMAT IS AMPLIFIED PROBE TQ CYTP C/V 85286 [facility], [facility] AUTO THIN 6 [facility] LYR PREPJ SCR [place] 25967 [facility]WIN UTERUS 6 [facility] W/DETAIL INC INC YENY 1ST GESTATION US PREG 17241 [facility] LOVING ALL UTERUS 6 MEDICAL AFTER 1ST IMAGING TRIMEST ASS GESTATION SUSCEPTIB 67214 [facility] ERWIN LTY STDY 6 [facility] ANTIMICRB INC INC IAL MICRO/AGA R DILUTJ URNLS DIP 95586 [facility] ERWIN 6 [facility] STICK/TAB INC INC LET REAGENT AUTO MICROSCOP Y TISS CECELIA 57301 [facility] SLIDE 6 [facility] SAMPS INC INC SKN/HR/NL S FNGI/ECTO PARASIT SMR PRIM 33167 [facility] ERWIN SRC WET 6 [facility] MOUNT INC INC NFCT AGT CULTURE 59498 [facility]WIN BCT 6 [facility] ISOL&PRSM INC INC PTV ID ISOLATE EA URINE CULTURE 66049 [facility]A YAIMA BACTERIAL 6 [facility]OS[facility] INC INC QUANTTATI VE COLONY COUNT URINE CULTURE 04712 ST ST BACTERIAL 6 [facility] MED CTR MED CTR QUANTTATI STORE GROCERY MERCHANDISER ST STORE GROCERY MERCHANDISER ST VE COLONY COUNT URINE RADIOLOGI 43892 RADIOLOGY KAREN SCO C EXAM 5 CHEST 2 ASSOCIATE VIEWS S OF NOTH FRONTAL&L ATERAL CYTP C/V 29924 [facility] AUT[facility] THIN 5 [facility] LLC [place] [address] [place] IVANIA TRANSVAGI 5 MEDICAL ANDRA NAL IMAGING ASS GROUND A0425 SY[facility] SYLVIA MILEAGE 5 CO CO PER AMBULANCE AMBULANCE STATUTE TAXIN TAXIN MILE AMBULANCE A0429 [facility] [place] SERVICE 5 CO CO BLS AMBULANCE AMBULANCE EMERGENCY TAXIN TAXIN TRANSPORT DELIVERY 21714 KARINE ANDUJAR PLACENTA 5 PRATIMA RODRIGUEZ MADALYN SEPAR[place] V 04840 [facility] DARNELL SURG 5 PONCHO & PATHOLOGY MARIANAILILEON GROSS&DARNELL ROSCOPIC EXAM 74560 [place] JULIEN BIOPHYSIC 5 MEDICAL JORGE AL IMAGING PROFILE ASS W/O NON-STRES S TESTING INITIAL 97793 KARINE ANDUJAR OBSERVATI 5 PRATIMA RODRIGUEZ MADALYN ON CARE/DAY 50 MINUTES GONADOTRO 75091 [facility] ERWIN PIN 5 [facility] CHORIONIC INC INC QUANTITAT ALFREDO COLLECTIO 03579 Y[facility]IMA ERWIN N VENOUS 5 [facility] BLOOD INC INC VENIPUNCT URE OTHER [address] MANUALLY 4 [facility]REG[facility]IO ASSISTED MED CTR MED CTR DELIVERY STORE GROCERY MERCHAND[facility]ER ST STORE GROCERY MERCHANDISER ST VAGINAL [address]11 ST PRADO DELIVERY 4 GREG[facility] MAR [place] [address] [facility] LOZADA DON SURG 4 [facility] PATHOLOGY MED CTR GROSS&DARNELL ROSCOPIC EXAM NEURAXIAL 83530 [facility] CHR LABOR 4 NT ANALG/ANE ANESTHESI S PLND OLOGIST VAGINAL DELIVERY FERN TEST Q0114 [facility] 4 GREG[facility]IO THO PHYSICIAN S SBSQ 65974 [facility] OBSERVATI 4 GREGORIO THO ON CARE/DAY PHYSICIAN 25 S MINUTES 49689 [facility] NONSTRESS 4 GREG[facility]IO THO TEST PHYSICIAN S RADEX 40019 [facility] RADIOLOGY CALCANEUS 2 MINIMUM ASSOCIATE ASSOCIATE 2 VIEWS S OF NOTH S OF NOTH RADEX 19438 [facility] RADIOLOGY FOOT 2 COMPLETE ASSOCIATE ASSOCIATE MINIMUM 3 S OF NOTH S OF NOTH VIEWS RADEX 45321 [facility] RADIOLOGY ANKLE 2 COMPLETE ASSOCIATE ASSOCIATE MINIMUM 3 S OF NOTH S OF NOTH VIEWS GROUND A0425 [facility] MILEAGE 2 FIRE FIRE PER DEPT DEPT STATUTE MILE AMBULANCE A0429 [facility] SERVICE 2 FIRE FIRE BLS DEPT DEPT EMERGENCY TRANSPORT OTHER 7359 ST MANUALLY 2 GREG[facility]IO GREGORIO ASSISTED DELIVERY MEDICALCE MEDICALCE NTER NTER INJECTION J0696 ST 2 GREG[facility]IO GREGORIO CEFTRIAXO NE SODIUM MEDICALCE MEDICALCE PER 250 NTER NTER MG THERAPEUT [address] ST IC 2 GREGORIO GREGORIO PROPHYLAC TIC/DX MEDICALCE MEDICALCE INJECTION NTER NTER SUBQ/IM US PREG 07541 [facility] GAVIRIA JOSH UTERUS 2 MATERNAL REAL TIME ME F/U TRNSABDL PER FETUS US PREG 77855 [facility] GAVIRIA JOSH UTERUS 2 MATERNAL W/DETAIL ME YENY 1ST GESTATION GLUCOSE 31501 [facility] TOLERANCE 2 DIAGNOSTI DIAGNOSTI TEST GTT CS CS 3 SPECIMENS CUL 94503 [facility] PRSMPTV 2 DIAGNOSTI DIAGNOSTI PTHGNC CS CS ORGANISM SCRN W/COLONY ESTIMJ IADNA 87542 [facility] MULTIPLE 2 DIAGNOSTI DIAGNOSTI ORGANISMS CS CS DIRECT PROBE TQ CULTURE 21432 [facility] BACTERIAL 2 DIAGNOSTI DIAGNOSTI CS CS QUANTTATI VE COLONY COUNT URINE OBSERVATI 46138 [facility] ALL ON/INPATI 1 [facility] ENT MED [facility] CARE [address] BACTERIAL 1 GREG[facility]IO GREGORIO DAMIAN DAMIAN QUANTTATI VE COLONY COUNT URINE BASIC [address] METABOLIC 1 GREG[facility]IO GREGORIO PANEL DAMIAN DAMIAN CALCIUM TOTAL BLOOD [address] COUNT 1 [place] [facility] COMPLETE DAMIAN DAMIAN AUTO&AUTO DIFRNTL WBC THERAPEUT [address] IC 1 GREG[facility]IO GREGORIO INJECTION DAMIAN DAMIAN [place] [address] INFUSION 1 GREG[facility]IO GREGORIO THERAPY/P DAMIAN DAMIAN ROPHYLAXI S /DX 1ST TO [address] D[address] 1 GREGORIO GREGORIO STICK/TAB DAMIAN DAMIAN LET RGNT NON-AUTO W/O MICRSCP COLLECTIO [address] N VENOUS 1 GREGORIO GREGORIO BLOOD DAMIAN DAMIAN VENIPUNCT URE URINE 42802 [facility] ST. 1 GREGORIOSTEPHEN FIELDSTH TEST DAMIAN DAMIAN VISUAL COLOR CMPRSN METHS NEURAXIAL 41760 [facility] [place] [facility] 0 NT ANALG/ANE ANESTHESI S PLND OLOGIST VAGINAL DELIVERY OTHER 7359 [facility] MANUALLY 0 GREGORIO GREGORIO ASSISTED DELIVERY MEDICALCE MEDICALCE NTER NTER REPAIR OF 7569 [facility] OTHER 0 GREGORIO GREGORIO CURRENT OBSTETRIC MEDICALCE MEDICALCE NTER NTER LACERATIO N OTHER 7309 [facility] ARTIFICIA 0 GREGORIO GREGORIO L RUPTURE OF MEDICALCE MEDICALCE MEMBRANES NTER NTER OTHER 9649 [facility] GENITOURI 0 GREGORIO GREGORIO NARY INSTILLAT MEDICALCE MEDICALCE ION NTER NTER URNLS DIP 05136 [facility] 0 POINT STICK/TAB FAMILY LET RGNT CARE, IN NON-AUTO W/O MICRSCP URNLS DIP 68713 [facility] EDW 0 POINT STICK/TAB FAMILY LET RGNT CARE, IN NON-AUTO W/O MICRSCP URNLS DIP 72324 [facility] EDW 0 POINT STICK/TAB FAMILY LET RGNT CARE, IN NON-AUTO W/O MICRSCP IADNA [address] [place] 0 GREGORIO GREGORIO GONORRHOE MEDICALCE MEDICALCE AE NTER NTER AMPLIFIED PROBE TQ IADNA [address] STREPTOCO 0 GREGORIO GREGORIO CCUS GROUP B MEDICALCE MEDICALCE AMPLIFIED NTER NTER PROBE TQ BLOOD 45725 [facility] EDW COUNT 0 POINT HEMOGLOBI FAMILY N CARE, [place] IADNA [address] CHLAMYDIA 0 GREGORIO GREGORIO TRACHOMAT MEDICALCE MEDICALCE IS NTER NTER AMPLIFIED PROBE TQ MOLEC [address] ISOL/XTRJ 0 GREGORIO GREGORIO HP NUCLEIC MEDICALCE MEDICALCE ACID EA NTER NTER TYPE URNLS DIP 41760 [facility] EDW 0 POINT STICK/TAB FAMILY LET RGNT CARE, IN NON-AUTO W/O MICRSCP URNLS DIP 68509 [facility] EDW 0 POINT STICK/TAB FAMILY LET RGNT CARE, IN NON-AUTO W/O MICRSCP URNLS DIP 34042 [facility], 0 POINT [place] C STICK/TAB FAMILY LET RGNT CARE, NON-AUTO INC. W/O MICRSCP COLLECTIO 06072 [facility], N VENOUS 0 POINT [place] C BLOOD FAMILY VENIPUNCT CARE, URE INC. URNLS DIP 28195 [facility], 0 POINT [place] C STICK/TAB FAMILY LET RGNT CARE, NON-AUTO INC. W/O MICRSCP GLUCOSE [address] POST 0 GREGORIO GREGORIO GLUCOSE DOSE MEDICALCE MEDICALCE NTER NTER URNLS DIP 34911 [facility], 0 POINT [place] A STICK/TAB FAMILY LET RGNT CARE, NON-AUTO INC. W/O MICRSCP [place] PREG [address] UTERUS 0 GREGORIO GREGORIO W/DETAIL MEDICALCE MEDICALCE YENY 1ST NTER NTER GESTATION BLOOD [address] COUNT 0 [facility] AUTO&AUTO DIFRNTL WBC GONADOTRO [address] ST PIN 0 [facility] URNLS DIP [address] 0 [facility] STICK/TAB [facility] LET RGNT NON-AUTO W/O MICRSCP COLLECTIO 73267 ST N VENOUS 0 [facility] VENIPUNCT URE IADNA 52682 [facility] NEISSERIA 0 [facility] GONORRHOE MEDICALCE MEDICALCE AE NTER NTER AMPLIFIED PROBE TQ COLLECTIO 75920 [facility], N VENOUS [address] [facility] BLOOD [facility] VENIPUNCT CARE, URE INC. URNLS DIP 88348 [facility], 0 POINT [place] STICK/TAB FAMILY LET RGNT CARE, NON-AUTO INC. W/O MICRSCP IADNA 55507 [facility] CHLAMYDIA 0 [facility] TRACHOMAT MEDICALCE MEDICALCE IS NTER NTER AMPLIFIED PROBE TQ [place] PREG 10802 [facility] UTERUS 0 [facility] AFTER 1ST TRIMEST MEDICALCE MEDICALCE 1/ NTER NTER GESTATION Encounters Encounter Start End Date Code Location Performer Type Date EMERGENCY 75333 [facility] 7 7 EMERGENCY DEPARTMEN T VISIT PHYSICIAN MODERATE S SEVERITY EMERGENCY 56384 [facility] 7 7 EMERGENCY DEPARTMEN T VISIT PHYSICIAN HIGH/URGE S NT SEVERITY [facility] 09233 [facility] 7 7 [facility] II T VISIT 25 PHYSICIAN MINUTES S OFFICE 89667 [facility] OUTPATIEN 6 6 [facility] T VISIT 15 PHYSICIAN MINUTES S OFFICE 86065 [facility] OUTPATIEN 6 6 [facility] T VISIT 15 PHYSICIAN MINUTES S [facility]OSP[facility] - 6 6 [facility] INPATIENT [facility] - 6 6 [facility] OUTPAT[facility]EN [facility] T OFFICE 84624 [facility] OUTPATIEN 6 6 PHYSICIAN MARCEL T VISIT S GROUP 15 MINUTES [facility]OSP[facility] - 6 6 [facility] T OFFICE 50079 [facility] OUTPATI[facility] 6 6 PHYSICIAN MARCEL T VISIT S GROUP 15 MINUTES HOSPITAL [facility] - 6 6 [facility] OUTPATIEN [facility] YAIMA - 6 6 [facility] T EMERGENCY 27988 [facility] DEPT 6 6 [facility] VISIT INC HIGH SEVERITY& THREAT FUNCJ EMERGENCY 22340 [facility] CHAUDHARY 6 6 [facility] H[facility]URGE NT SEVERITY [facility] - 6 6 [facility] OUTPATIEN [facility] T OFFICE 97545 [facility] 6 PHYSICIAN MARCEL T VISIT S GROUP 25 MINUTES EMERGENCY 72536 [facility] CHAUDHARY 6 6 PHYSICIAN DEPARTMEN S, PLLC T VISIT HIGH/URGE NT SEVERITY [facility]OSPITAL [facility] - 6 6 [facility] OUTPATIEN [facility] T EMERGENCY 91879 [facility] 6 6 [facility] DEPARTMEN INC T VISIT LOW/MODER SEVERITY HOSPITAL ST - OTHER 6 6 [facility] OFFICE 37727 [facility] OUTPATIEN 6 6 [facility] T VISIT 25 PHYSICIAN MINUTES S EMERGENCY 52794 [facility] 6 6 EMERGENCY ANT DEPARTMEN T VISIT PHYSICIAN HIGH/URGE S NT SEVERITY EMERGENCY 95379 [facility] ESTRADA 5 5 EMERGENCY ALEXSANDER DEPARTMEN T VISIT PHYSICIAN HIGH/URGE S NT SEVERITY OFFICE [address] [facility] OUTPATIEN 5 5 [facility] T VISIT 15 PHYSICIAN MINUTES S OFFICE [address] [facility] OUTPATIEN 5 5 [facility] T VISIT 25 PHYSICIAN MINUTES S HOSPITAL [facility] - 5 5 [facility] OUTPATIEN INC [facility] ST - 4 4 [facility] INPATIENT [facility] EMERGENCY 72977 [facility] 4 4 DARNELL DARNELL DEPARTMEN T VISIT HIGH/URGE NT SEVERITY EMERGENCY 09578 [facility] 2 2 [facility] LELE DEPARTMEN MED CTR T VISIT MODERATE SEVERITY EMERGENCY 81533 [facility] 2 2 [facility] ANDRA DEPARTMEN MED CTR T VISIT MODERATE SEVERITY OFFICE 86906 [facility] OUTPATIEN 2 2 POINT T VISIT FAMILY 25 CARE, IN MINUTES EMERGENCY 55[address] [facility] 2 2 [facility] MAR DEPARTMEN MED CTR T VISIT HIGH/URGE NT SEVERITY HOSPITAL ST - 2 2 [facility] INPATIENT MEDICALCE NTER EMERGENCY 30988 ST 2 2 [facility] DEPARTMEN T VISIT MEDICALCE LOW/MODER NTER SEVERITY [facility]OSPITAL ST - 2 2 [facility] OUTPATIEN T MEDICALCE NTER [facility] ST - 2 2 [facility] OUTPATIEN T MEDICALCE NTER OFFICE 79855 [facility] OUTPATIEN 2 2 MATERNAL T NEW 20 ME [address] [facility] ST - 2 2 [facility] OUTPATIEN T MEDICALCE NTER OFFICE 42891 [facility] OUTPATIEN 1 1 [facility] DARNELL T VISIT 15 PHYSICIAN MINUTES S [facility] - 1 1 [facility] OUTPATIEN DAMIAN T EMERGENCY [address]2884 ST. 1 1 [facility] DAMIAN T VISIT HIGH/URGE NT SEVERITY EMERGENCY 13306 ST E[facility] 1 1 [facility] MED CTR T VISIT MODERATE SEVERITY HOSPITAL ST - 0 0 [facility] INPATIENT MEDICALCE NTER OFFICE 63049 [facility] ED[facility] OUTPATIEN 0 0 POINT T VISIT FAMILY 10 CARE, IN MINUTES OFFICE 40987 [facility] OUTPATIEN 0 0 POINT T VISIT FAMILY 10 CARE, IN MINUTES HOSPITAL ST - 0 0 [facility] OUTPATIEN T MEDICALCE NTER OFFICE 59671 [facility] OUTPATIEN 0 0 POINT T VISIT FAMILY 10 CARE, IN MINUTES OFFICE 71430 [facility] OUTPATIEN 0 0 POINT T VISIT FAMILY 10 CARE, IN MINUTES OFFICE 48259 [facility] OUTPATIEN 0 0 POINT T VISIT FAMILY 10 CARE, IN MINUTES OFFICE 42029 [facility], OUTPATIEN 0 0 POINT [facility] C T VISIT FAMILY 10 CARE, MINUTES INC. OFFICE 36191 [facility], OUTPATIEN 0 0 PO[facility] C T VISIT FAMILY 10 CARE, MINUTES INC. [facility] ST - 0 0 [facility] OUTPATIEN T MEDICALCE NTER OFFICE 73292 [facility], OUTPATIEN 0 0 POINT MARGO A T VISIT FAMILY 10 CARE, MINUTES INC[facility] ST - 0 0 [facility] OUTPATIEN T MEDICALCE NTER EMERGENCY 86110 ST 0 0 [facility] T VISIT HIGH/URGE [facility] 0 [facility] OFF[facility] 22287 [facility] 0 0 [facility] T [facility]ISIT FAMILY [address] [place] [address], [facility] ST - 0 0 [facility] [place] ST - 0 0 [facility]
[2017-02-04 18:27] LABS: URINE BILIRUBIN - DIPSTICK 1+ (NEG); URINE BLOOD TRACE (NEG)
--- OUTSIDE RECORDS SUMMARY | 2017-02-04 18:30 | External Medical Summary Rpt ---
Author Author , Organization [employer] Address Unknown Phone Unavailable Care Team Providers Care Cartridge Assembler Name Role Phone BEINEKE ANDRA, DARIOINEBRUCE Unavailable Unavailable ANDRA LOVING ALL, LOVING ALL [...] Unavailable Unavailable JULIEN JORGE [facility] # [id number], Unavailable Unavailable [facility] # [id number] KIMMY, MARIHELEN, Unavailable Unavailable KIMMY, MARIHELEN FEEBACK REE, FEEBACK Unavailable Unavailable REE ALDEN ANT, ALDEN Unavailable Unavailable ANT LISSETH ZIMMER, Unavailable Unavailable LISSETH ZIMMER MAYO DARNELL, MAYO Unavailable Unavailable DARNELL MAYO DARNELL, MAYO Unavailable Unavailable DARNELL KARINE ANDUJAR MD, Unavailable Unavailable KARINE LEVY DARNELL, MILDRED DARNELL Unavailable Unavailable HUMPHREY EDW, HUMPHREY EDW Unavailable Unavailable PIETER HUMPHREY, MILAGRO, Unavailable Unavailable EDWARD C HARPEL MADALYN, HARPEL Unavailable Unavailable MADALYN [facility] Unavailable Unavailable INC, [facility] Un[facility]available CARE, IN, [facility], IN [facility], Unavailable [facility]available [facility] ACEVEDO JET, ACEVEDO JET Unavailable Unavailable [facility] Unavailable Unavailable [facility], [facility] # Unavailable Unavailable [id number], [facility] # [id number] LOWE LELE, LOWE LELE Unavailable Unavailable MCDANIEL EMMA, MCDANIEL Unavailable Unavailable EMMA JOHN DARNELL, Unavailable Unavailable JOHN DARNELL KAVON JACOBSON Unavailable Unavailable MASROOR ALA, MASROOR Unavailable Unavailable ALA HEIDI, HEIDI Unavailable Unavailable NATALIE BELTRE, NATALIE Unavailable Unavailable JR ALEXSANDER MARGO HILTON MYERS, Unavailable Unavailable MARGO Sara OAK ALL, OAK ALL Unavailable Unavailable OSTERLUND [...] [facility] Unavailable Unavailable [facility], [facility] ELISABETH THO, ELISABETH Unavailable Unavailable THO GAVIRIA JOSH, GAVIRIA JOSH Unavailable Unavailable SOWER LELE, SOWER LELE Unavailable Unavailable [facility] Unavailable Unavailable [facility] Unavailable [facility]available [facility], [facility], Unavailable [facility]available [facility] Unavailable Unavailable [facility] , [facility] Unavailable Unavailable [facility], [facility] Unavailable Unavailable PHYSICIANS, [facility] . [facility] DAMIAN, Unavailable Unavailable [facility] DAMIAN ELLIS GRE, ELLIS Unavailable Unavailable GRE THRELKELD II, Unavailable Unavailable THRELKELD II [facility] Unavailable Unavailable ME, [facility] KAREN SCO, KAREN SCO Unavailable Unavailable WILLOBY DARNELL, WILLOBY Unavailable Unavailable DARNELL Purpose Continuity of Care Document - 12-01-2009 through 2016 Problems Code Diagnosis DOS Provider Status B354 TINEA 12-16-2016 [facility]ERG[facility]Y PHYSICIANS N10 ACUTE 10-10-2016 [facility] PYELONEPHRI EMERGENCY TIS PHYSICIANS R112 NAUSEA WITH 10-10-2016 [facility] VOMITING EMERGENCY UNSPECIFIED PHYSICIANS N390 URINARY 10-09-2016 [facility] INFECTION PHYSICIANS SITE NOT SPECIFIED R110 NAUSEA 10-09-2016 [facility] PHYSICIANS R300 DYSURIA 10-09-2016 [facility] PHYSICIANS Z6827 BODY MASS 10-09-2016 [facility] BMI [facility] 27.0-27.9 PHYSICIANS ADULT [id number] CHRONIC 07-03-2016 MIGRAINE GREG[facility]IO W/O AURA PHYSICIANS NOT INTRACT W/O SM X54602 MIGRAINE 07-03-2016 UNS [facility] INTRACTABLE PHYSICIANS W/O STATUS MIGRAINOSUS M542 CERVICALGIA 03-27-2016 ST [facility] PHYSICIANS R590 LOCALIZED 03-27-2016 ENLARGED [facility]REG[facility]IO LYMPH NODES PHYSICIANS A016PLG STRAIN 03-27-2016 MUSCLE FASC GREG[facility]IO & TENDON [...] 03-05-2016 [facility] N00478 OTHER SPEC 02-24-2016 [facility] COND UNS TRIMESTER [id number] MATERNAL 02-24-2016 [facility] PRESENTATIO N NA/UNS Z3A00 WEEKS OF 02-24-2016 [facility] NOT SPECIFIED Z3480 ENC 02-21-2016 [facility] SUPERVISION PHYSICIANS OTH NORMAL GROUP PREG UNS TRIMESTER J00502 DRUG USE 02-14-2016 [facility] COMPLICATIN PHYSICIANS G GROUP UNS TRIMESTER M549 DORSALGIA 01-31-2016 [facility]NSPECIFIED [facility] INC [id number] OTHER SPEC 01-31-2016 [facility] RELATED INC COND 3RD TRIMESTER O471 FALSE LABOR 01-31-2016 [facility] AT/AFTER PHYSICIANS 37 GROUP COMPLETED WEEKS GEST Z3A35 35 WEEKS 01-31-2016 [facility] [id number] OTHER SPEC 12-09-2015 [facility] COND 2ND TRIMESTER R109 UNSPECIFIED 12-09-2015 [facility] ABDOMINAL CO PAIN AMBULANCE TAXIN [id number] ABRASION 12-09-2015 [facility] LEFT KNEE [facility] INITIAL INC ENCOUNTER Z041 ENCOUNTER 12-09-2015 [place] EXAM&OBSERV MEDICAL FOLLOW IMAGING ASS TRANSPORT ACCIDENT Z3402 ENCOUNTER 12-09-2015 [facility] PH[facility]IANS, NORMAL PLLC FIRST PREG 2 TRIMESTER Z3483 ENC 12-09-2015 [facility] SUPERVISION [facility] OTH NORMAL INC 3 TRIMESTER Z3A27 27 WEEKS 12-09-2015 [place] [facility]STATION [facility]ICAL OF IMAGING ASS Z720 TOBACCO [...] PLLC UNS 2ND TRIMESTER R1030 LOWER 11-25-2015 [place] ABDOMINAL MEDICAL PAIN [facility]AGING ASS UNSPECIFIED Z3A25 25 WEEKS 11-25-2015 [place] [facility]ATION [facility]ICAL OF [facility] ASS 63618 CHEST PAIN 04-15-2015 RAD[facility] UNSPECIFIED [facility] 87319 CONTUSION 04-15-2015 [facility] EMERGENCY [facility]ION PHYSICIANS 28917 CHRONIC 03-11-2015 MIGRAINE GREG[facility]IO W/O AURA PHYSICIANS W/O INTRACTABLE W/O SM V242 ROUTINE 02-25-2015 [facility] FOLLOW-UP 6238 OTHER 11-15-2014 [place] SPECIFIED MEDICAL NONINFLAMMA IMAGING ASS TORY DISORDER VAGINA 6259 UNSPEC 11-15-2014 [facility] W/FEMALE GENITAL ORGANS 84164 PREMATURE 11-12-2014 [facility] SEPARATION PONCHO & OF PLACENTA DUBILIER WITH DELIVERY 82712 THREATENED 11-12-2014 [facility] PREMATURE CO LABOR AMBULANCE UNSPEC TAXIN EPIS CARE 55843 INFECTION 11-12-2014 [facility] OF AMNIOTIC PONCHO & CAVITY DUBILIER DELIVERED 01789 ABDOMINAL 11-12-2014 [facility] PAIN, CO UNSPECIFIED AMBULANCE SITE TAXIN V237 INSUFFICIEN 11-12-2014 KARINE Wu PRATIMA RODRIGUEZ CARE V240 11-12-2014 KARINE CRAWFORD&NISSA ANDUJAR MD ATION IMMED AFTER DELIV 47905 UNSPECIFIED 11-04-2014 KARINE Ding ANTEPARTUM PRATIMA RODRIGUEZ HEMORRHAGE ANTEPARTUM 32917 OLIGOHYDRAM 11-04-2014 [place] NIOS, MEDICAL ANTEPARTUM IMAGING ASS 76932 ABNORM 11-04-2014 [facility] RATE/RHYTHM ANTPRTM COND/COMP V221 SUPERVISION 10-16-2014 [facility] NORMAL INC 35075 OTH CURRENT 02-11-2014 ST MATERNAL [facility] CCE MED CTR BOOT AND SADDLE REPAIR PERSON W/DELIVERY ST 25721 TOBACCO USE 02-11-2014 ST D/O COMP [facility] PG MED CTR BOOT AND SADDLE REPAIR PERSON CHILDBIRTH/ ST PP DELIVERED 650 NORMAL 02-11-2014 DELIVERY [facility] PHYSICIANS 88165 FIRST-DEGRE 02-11-2014 ST E PERINEAL [facility] LACERATION MED CTR BOOT AND SADDLE REPAIR PERSON WITH ST DELIVERY V270 OUTCOME OF 02-11-2014 DELIVERY [facility] SINGLE PHYSICIANS LIVEBORN V8901 SPCT PROB 02-04-2014 ST W/AMNIOTIC GREG[facility]IO CAVITY & PHYSICIANS MEMBRANE NOT FOUND 04325 OTHER 12-18-2013 MAYO MIC SPECIFED COMPLICATIO N ANTEPARTUM 7295 PAIN IN 01-03-2012 [facility] TISSUES OF OF [facility] LIMB 39825 UNSPECIFIED 01-02-2012 ST SITE OF [facility] ANKLE MED CTR SPRAIN AND STRAIN 28357 PAIN IN 12-27-2011 [facility] JOINT, ASSOCIATES ANKLE AND OF [facility] FOOT 79250 SPRAIN AND 12-27-2011 ST STRAIN OF [facility]REG[facility]IO UNSPECIFIED MED CTR SITE OF FOOT 9599 INJURY 12-27-2011 RADIOLOGY OTHER AND ASSOCIATES UNSPECIFIED OF [facility] UNSPECIFIED SITE 12782 MIGRAINE 12-25-2011 HEALTH UNSP W/O POINT INTRACT W/O FAMILY STATUS CARE, IN MIGRAINOSUS 65709 ASTHMA, 10-04-2011 ST UNSPECIFIED GREG[facility]IO , MEDICALCENT UNSPECIFIED ER STATUS 5990 URINARY 10-04-2011 ST TRACT [facility] INFECTION MEDICALCENT SITE NOT ER SPECIFIED 36449 INFECTIONS 10-04-2011 ST GENITOURINA [facility]REG[facility]IO RY TRACT MEDICALCENT ER W/DELIV 73095 POOR 10-04-2011 ST GROWTH [facility] AFFECT MEDICALCENT MANAGEMENT ER MOTH DELIV V140 PERSONAL 10-04-2011 ST HISTORY OF [facility] [address] UNSPECIFIED 09-24-2011 ST INFECTIVE [facility] OTITIS MEDICALCENT EXTERNA ER 3829 UNSPECIFIED 09-24-2011 [place] [address] OTH CURRENT 09-24-2011 ST MAT CONDS [facility] CLASSIFIABL MEDICALCENT E ELSW ER ANTPRTM 84915 TOB USE D/O 09-24-2011 COMP PG [facility] /PP MEDICALCENT ANTEPARTM ER COND/COMP V148 PERSONAL 09-24-2011 HISTORY [facility] ALLERGY OTH MEDICALCENT SPEC ER MEDICINAL AGTS V5869 LONG-TERM 09-24-2011 (CURRENT) [facility] USE OF MEDICALCENT OTHER ER MEDICATIONS 25353 OTHER 09-19-2011 SPECIFIED [facility] DISORDER OF MEDICALCENT KIDNEY AND ER URETER 55762 UNSPECIFIED 09-19-2011 ST ANTEPARTUM [facility] RENAL MEDICALCENT DISEASE ER V235 09-19-2011 ST WITH OTHER [facility] POOR MEDICALCENT REPRODUCTIV ER E HISTORY 91920 BREECH 09-04-2011 PRESENTATIO [facility] N W/O MEDICALCENT MENTION ER VERSION ANTPRTM 75574 UNS 09-04-2011 [facility] ABNORM MGMT MATERNAL MOTH ME ANTPRTM COND/COMP V239 UNSPECIFIED 09-04-2011 [facility] HIGH-RISK MATERNAL ME 5589 OTH&UNSPEC 08-11-2011 NONINFECTIO [facility] US MED CTR GASTROENTER ITIS&COLITI S 55230 UNSPECIFIED 08-11-2011 [facility] COMPLICATIO MED CTR N OF ANTEPARTUM 40038 ACUT 05-13-2011 PYELONEPHRI [place] TIS W/O LES MED CTR RENAL MEDULRY NECROS 37160 UNSPECIFIED 05-13-2011 [facility] PYELONE[facility] DAMIAN TIS 88420 INFECTIONS 05-13-2011 . GREG[facility]IO GENITOURINA DAMIAN RY TRACT ANTEPARTUM 7242 LUMBAGO 05-03-2011 [facility] MED CTR 82618 PRECIPITATE 05-22-2010 LABORG[facility]IO WITH MEDICALCENT DELIVERY ER V2389 SUPERVISION 05-16-2010 HEALTH OF OTHER POINT HIGH-RISK FAMILY CARE, IN V220 SUPERVISION 02-07-2010 [facility]ALTH OF NORMAL POINT [facility] 65443 TOB USE D/O 01-13-2010 [facility] COMP PG MATERNAL /PP UNSPEC EPIS MEDICINE CARE/NA INC V2889 OTHER 01-13-2010 SPECIFIED [facility] MEDICALCENT SCREENING ER 4660 ACUTE 12-28-2009 BRONCHITIS [facility] MED CTR 03033 ABDOMINAL 12-28-2009 ST PAIN, LEFT [facility] LOWER MED CTR QUADRANT 8488 OTHER 12-28-2009 ST SPECIFIED [facility] SITES OF MED CTR SPRAINS AND STRAINS V7240 12-28-2009 ST EXAMINATION G[facility] /TEST MED CTR UNCONFIRMED V2383 SUPERVISION 12-15-2009 HEALTH HIGH-RISK POINT [facility] PRIMIGRAVID CARE, INC. A 83386 OTH SPEC 12-01-2009 [facility] COMP MATERNAL ME UNSPEC EPISODE CARE V283 ENCOUNTER 12-01-2009 ROUTINE [facility] SCREEN MEDICALCENT MALFORMATIO ER N ULTRASONIC Medications Na ND Rx Da Fi Fi Am Da Di Ph RX Ph St me C No te ll ll ou ys ag ar # ys at rm s nt no ma ic us Or Da si cy ia de te s n re d [place] 59 03 04 30 7 00 KE Ac OC 74 -1 -1 .0 00 NT ti HL 60 8- 4- 00 00 UC ve OR 11 20 20 85 [place] PE 50 17 17 30 RA 6 91 CV ZI S NE PH AR 10 MA CY MG LL TA C, B DB A CV S PH AR MA CY #0 54 37 [place] 65 03 03 25 4 00 KE [...] -A 1 73 CE PH TA AR MT MA NO CY PH #5 7. 5- 32 5 CI 65 02 03 14 7 00 KE Ac [place] 86 -2 -1 .0 00 NT ti [...] -A 1 87 CE PH TA AR MT MA NO CY PH #5 7. 5- [...] -A 1 00 CE PH TA AR MT MA NO CY PH #5 7. 5- [...] AR Y 10 71 11 11 MA MT 8 CY CH MG # EL LE TA 05 BL 43 ET 7 TO 31 10 10 2 60 30 CV 58 WI Ac PI 72 -2 -2 .0 S 94 LL ti RA 20 7- 7- 00 PH 97 OB ve MA 27 20 20 AR Y TE 96 11 11 MA MT 0 CY CH 50 # EL LE [...] .0 OG 38 RN ti SA 20 7- 8- 00 ER 27 ES ve TE 48 20 20 5 67 10 10 PH MA SO 8 AR RY DI MA A UM CY # 10 0 14 MG 38 1 SO FT GE L OX 00 10 10 0 20 3 KR 23 RAHMAN Ac YC 40 -0 -0 .0 OG 53 LL ti OD 60 7- 8- 00 ER 84 IV ve ON 51 20 20 9 AN E- 20 10 10 PH AC 1 AR MO ET MA NI AM CY CA IN # OP HE 14 N 38 5- 1 32 5 [place] 65 08 09 5 30 30 KR 61 ROMERO Ac EN 16 -0 -2 .0 OG 34 LL ti AT 20 3- 1- 00 ER 40 ve AL 66 20 20 0 ED [address] US MA C CY TA # BL ET 14 38 1 FE 00 09 09 1 90 30 KR 61 ROMERO Ac RR 67 -1 -2 .0 OG 36 LL ti OU 70 4- - 00 ER 83 ve S 07 20 20 6 ED RAHMAN 01 10 10 PH WA LF [address] AT MA C E CY 32 # 5 MG 14 38 TA 1 BL ET Procedures Procedure DOS Code Location Performer Comment [facility]0696 [facility] II CEFTRIAXO NE SODIUM PHYSICIAN PER [address] [facility] LTY STDY 7 GREGORIO PERKINS ANTIMICRB IAL HEALTHCAR HEALTHCAR MICRO/AGA E EDGE E EDGE R DILUTJ THERAPEUT 57108 [facility] 7 GREGORIO II PROPHYLAC TIC/DX PHYSICIAN INJECTION S SUBQ/IM CUL BACT 23495 [facility] AEROBIC 7 GREGORIO GREGORIO ADDL METHS HEALTHCAR HEALTHCAR DEFINITIV E EDGE E EDGE E EA ISOL CULTURE 05566 [facility] BACTERIAL 7 [place] GREGORIO QUANTTATI HEALTHCAR HEALTHCAR VE COLONY E EDGE E EDGE COUNT URINE INJECTION J2550 ST MCDANIEL 6 GREGORIO CARTER PROMETHAZ INE HCL PHYSICIAN UP TO [address] MCDANIEL IC 6 GREGORIO EMMA PROPHYLAC TIC/DX PHYSICIAN INJECTION S SUBQ/IM INJECTION J1040 ST MCDANIEL 6 GREGORIO CARTER METHYLPRE DNISOLONE PHYSICIAN ACETATE S 80 MG ANES IPER 24179 [facility]UNITY FEEBACK LWR ABD 6 ANESTH REE W/LAPS OF THE TUBAL BLUE LIGATION/ TRANSECT LIG/TRNSX 98201 [facility] IVEY J FLP 6 PHYSICIAN MARCEL TUBE S GROUP ABDL/VAG POSTPARTU M SPX OCCLUSION [id number] [facility] ERWIN MARCUS 6 [facility] FALLOPIAN INC INC TUBES EXTRALUM DEV OPEN DELIVERY [id number] Y[facility]A ERWIN PRODUCTS 6 [facility] OF INC INC CONCEPTIO N EXTERNAL NEURAXIAL 06137 [facility] FEEBACK LABOR 6 ANESTH REE ANALG/ANE OF THE S PLND BLUE VAGINAL DELIVERY VAGINAL 65704 [facility] IVEY DELIVERY 6 PHYSICIAN MARCEL ONLY S GROUP W/POSTPAR GIANCARLO CARE DOPPLER 19858 [facility] VELOCIMET 6 MEDICAL RY IMAGING UMBILICAL ASS ARTERY 43609 [facility] BIOPHYSIC 6 MEDICAL AL IMAGING PROFILE ASS W/O NON-STRES S TESTING PARTICLE 48599 [facility] ERWIN AGGLUTINA 6 [facility] TION INC INC SCREEN EACH ANTIBODY DRUG TST G0477 [facility] PRESUMP;C 6 PHYSICIAN PHYSICIAN PBL BEING S GROUP S GROUP READ DC OPT OBV ONLY 63404 [facility] HARPEL NONSTRESS 6 PHYSICIAN MADALYN TEST S GROUP URNLS DIP 08795 [facility] ERWIN 6 [facility] STICK/TAB INC INC LET REAGENT AUTO MICROSCOP Y TOBACCO 36987 [facility]A ERWIN USE 6 [facility] CESSATION INC INC INTERMEDI ATE 3-10 MINUTES EVAL C/V 27971 [facility] ERWIN AMNIOTIC 6 [facility] FLUID INC INC PROTEIN QUAL EA SPECIMEN CULTURE 14706 [facility] ERWIN BACTERIAL 6 [facility] INC [place] [address] [facility] JULIEN 6 MEDICAL JORGE UTERUS IMAGING LIMITED ASS 1/> FETUSES 08390 [facility] BIOPHYSIC 6 MEDICAL AL IMAGING PROFILE ASS W/O NON-STRES S TESTING AMB A0427 [facility] SYLVIA SERVICE 6 CO CO ALS AMBULANCE AMBULANCE EMERGENCY TAXIN TAXIN TRANSPORT LEVEL 1 GROUND A0425 [facility] SYLVIA MILEAGE 6 CO CO PER AMBULANCE AMBULANCE STATUTE TAXIN TAXIN MILE DOPPLER 32493 [facility] VELOCIMET 6 MEDICAL RY IMAGING UMBILICAL ASS ARTERY CYTP C/V 43752 [facility], AUTO THIN 6 [facility] LYR PREPJ SCR MNL RESCR PHYS DRUG TST G0477 [facility] IVEY PRESUMP;C 6 PHYSICIAN MARCEL PBL BEING S GROUP READ DC OPT OBV ONLY COLLECTIO 31273 [facility] ERWIN N VENOUS 6 [facility] BLOOD INC INC VENIPUNCT URE OBSTETRIC 12821 [facility] ERWIN PANEL 6 [facility] INC INC INF AGT G0432 [facility] ERWIN AB DETECT 6 [facility] EIA TECH INC INC HIV-1&/HI V-2 SCR IADNA 54742 [facility] NEISSERIA 6 [facility] GONORRHOE AE AMPLIFIED PROBE TQ IADNA 89301 [facility], [facility] CHLAMYDIA 6 [facility] TRACHOMAT IS [place]IF[place] T[place] P[place] 83548 [facility] UTERUS 6 MEDICAL AFTER 1ST IMAGING TRIMEST ASS 1/ GESTATION CULTURE 93819 [facility] ERWIN BACTERIAL 6 [facility] INC INC QUANTTATI VE COLONY COUNT URINE CULTURE 73344 [facility] ERWIN BCT 6 [facility] ISOL&PRSM INC INC PTV ID ISOLATE EA URINE SMR PRIM 85779 [facility] ERWIN SRC WET 6 [facility] MOUNT INC INC NFCT AGT TISS CECELIA 60698 [facility] ERWIN SLIDE 6 [facility] SAMPS INC INC SKN/HR/NL S FNGI/ECTO PARASIT URNLS DIP 67126 [facility] ERWIN 6 [facility] STICK/TAB INC INC LET REAGENT AUTO MICROSCOP Y SUSCEPTIB 84040 [facility] ERWIN LTY STDY 6 [facility]OS[facility] ANTIMICRB INC INC IAL MICRO/AGA R DILUTJ US PREG 83626 [facility] ERWIN UTERUS 6 [facility] W/DETAIL INC INC YENY 1ST GESTATION CULTURE 71114 [facility] BACTERIAL 6 GREGORIO GREGORIO MED CTR MED CTR QUANTTATI BOOT AND SADDLE REPAIR PERSON ST BOOT AND SADDLE REPAIR PERSON ST VE COLONY COUNT URINE RADIOLOGI 09067 RADI[facility] KAREN SCO C EXAM 5 CHEST 2 ASSOCIATE VIEWS S OF NOTH FRONTAL&L ATERAL CYTP C/V 13440 [facility], AUTO THIN 5 [employer] [place] [address] [place] [facility] TRANSVAGI 5 MEDICAL ANDRA NAL IMAGING ASS AMBULANCE A0429 [facility] SYLVIA SERVICE 5 CO CO BLS AMBULANCE AMBULANCE EMERGENCY TAXIN TAXIN TRANSPORT GROUND A0425 [facility] SYLVIA MILEAGE 5 CO CO PER AMBULANCE AMBULANCE [place]UTE [place] [address] [facility] DARNELL SURG 5 PONCHO & PATHOLOGY MARIANAILILEON GROSS&DARNELL ROSCOPIC EXAM DELIVERY 78653 KARINE ANDUJAR PLACENTA 5 PRATIMA RODRIGUEZ MADALYN SEPARATE PROCEDURE 61288 [facility] BIOPHYSIC 5 MEDICAL JORGE AL IMAGING PROFILE ASS W/O NON-STRES S TESTING INITIAL 95088 KARINE ANDUJAR OBSERVATI 5 PRATIMA BERGMAN ON CARE/DAY 50 MINUTES GONADOTRO 01808 [facility] ERWIN PIN 5 [facility] CHORIONIC INC INC QUANTITAT ALFREDO COLLECTIO 15916 Y[facility]A ERWIN N VENOUS 5 [facility] BLOOD INC INC VENIPUNCT URE [place] V [address]97[address] ST LOZADA DON SURG 4 GREG[facility]IO PATHOLOGY MED CTR GROSS&DARNELL ROSCOPIC EXAM NEURAXIAL 31943 INDEPENDE MASROOR LABOR 4 NT ALA ANALG/ANE ANESTHESI S PLND OLOGIST VAGINAL DELIVERY OTHER [address] MANUALLY 4 GREGORIO PERKINS ASSISTED MED CTR MED CTR DELIVERY BOOT AND SADDLE REPAIR PERSON ST BOOT AND SADDLE REPAIR PERSON ST VAGINAL 66823 ST PRADO DELIVERY 4 GREGORIO MAR ONLY PHYSICIAN S [address] ST ELISABETH NONSTRESS 4 GREGORIO THO TEST PHYSICIAN S SBSQ 77819 ST ELISABETH OBSERVATI 4 GREGORIO THO ON CARE/DAY PHYSICIAN 25 S MINUTES FERN TEST Q0114 [facility] THO PHYSICIAN S RADEX 30072 [facility] RADIOLOGY CALCANEUS 2 MINIMUM ASSOCIATE ASSOCIATE 2 VIEWS S OF NOTH S OF NOTH RADEX 11678 [facility]IOLOGY ANKLE 2 COMPLETE ASSOCIATE ASSOCIATE MINIMUM 3 S OF NOTH S OF NOTH VIEWS RADEX 76581 [facility] RADIOLOGY FOOT 2 COMPLETE ASSOCIATE ASSOCIATE MINIMUM 3 S OF NOTH S OF NOTH VIEWS OTHER 7359 ST MANUALLY 2 GREGORIO PERKINS ASSISTED DELIVERY MEDICALCE MEDICALCE NTER NTER AMBULANCE A0429 [facility] SERVICE 2 FIRE FIRE BLS DEPT DEPT EMERGENCY TRANSPORT GROUND A0425 [facility] MILEAGE 2 FIRE FIRE PER DEPT DEPT STATUTE MILE INJECTION J0696 [facility] 2 GREGORIO PERKINS CEFTRIAXO NE SODIUM MEDICALCE MEDICALCE PER 250 NTER NTER MG THERAPEUT 60032 [facility] IC 2 GREGORIOINES PERKINS PROPHYLAC TIC/DX MEDICALCE MEDICALCE INJECTION NTER NTER SUBQ/IM US PREG 81353 [facility] UTERUS 2 GREGORIO PERKINS REAL TIME F/U MEDICALCE MEDICALCE TRNSABDL NTER NTER PER FETUS [place] PREG 13266 [facility] UTERUS 2 GREGORIO PERKINS W/DETAIL MEDICALCE MEDICALCE YENY 1ST NTER NTER GESTATION IADNA 29870 [facility] MULTIPLE 2 DIAGNOSTI DIAGNOSTI ORGANISMS CS CS DIRECT PROBE TQ GLUCOSE 41568 [facility] TOLERANCE 2 DIAGNOSTI DIAGNOSTI TEST GTT CS CS 3 SPECIMENS CUL 57814 [facility] PRSMPTV 2 DIAGNOSTI DIAGNOSTI PTHGNC CS CS ORGANISM SCRN W/COLONY ESTIMJ CULTURE 83581 [facility] BACTERIAL 2 DIAGNOSTI DIAGNOSTI CS CS QUANTTATI VE COLONY COUNT URINE OBSERVATI 03764 [facility] ON/INPATI [facility] 40 MINUTES BASIC 69106 [facility] METABOLIC 1 GREGORIO PERKINS PANEL DAMIAN DAMIAN CALCIUM TOTAL CULTURE [address] BACTERIAL 1 [place] GREG[facility] DAMIAN DAMIAN QUANTTATI VE COLONY COUNT URINE BLOOD [address] COUNT 1 [place] COMPLETE DAMIAN DAMIAN AUTO&[place] [address] INFUSION 1 GREGORIOSTEPHEN FIELDSTH THERAPY/P DAMIAN DAMIAN ROPHYLAXI S /DX 1ST TO [address] IC 1 [place] GREG[place]IO INJECTION DAMIAN DAMIAN IV PUSH EACH NEW DRUG COLLECTIO [address] N VENOUS 1 [place] BLOOD DAMIAN DAMIAN VENIPUNCT URE URINE [address] 1 [place] FIELDSTH TEST DAMIAN DAMIAN VISUAL COLOR CMPRSN METHS URNLS DIP [address] 1 [place] G[place]IO STICK/TAB DAMIAN DAMIAN LET RGNT NON-AUTO W/O MICRSCP OTHER 7309 [facility] ARTIFICIA 0 [place] GREGORIO L RUPTURE OF MEDICALCE MEDICALCE MEMBRANES NTER NTER OTHER [address] MANUALLY 0 [place] GREGORIO ASSISTED DELIVERY MEDICALCE MEDICALCE NTER NTER REPAIR OF 7569 ST OTHER 0 [place] GREG[place]IO CURRENT OBSTETRIC MEDICALCE MEDICALCE NTER NTER LACERATIO N NEURAXIAL 07769 [facility] 0 NT ANALG/ANE ANESTHESI S PLND OLOGIST VAGINAL DELIVERY OTHER 9649 [facility] GENITOURI 0 [facility] NARY INSTILLAT MEDICALCE MEDICALCE ION NTER NTER URNLS DIP 76287 [facility] EDW 0 POINT STICK/TAB FAMILY LET RGNT CARE, IN NON-AUTO W/O MICRSCP URNLS DIP 04874 [facility] EDW 0 POINT STICK/TAB FAMILY LET RGNT CARE, IN NON-AUTO W/O MICRSCP IADNA 06154 [facility] NEISSERIA 0 [facility] GONORRHOE MEDICALCE MEDICALCE AE NTER NTER AMPLIFIED PROBE TQ URNLS DIP 71703 [facility] EDW 0 POINT STICK/TAB FAMILY LET RGNT CARE, IN NON-AUTO W/O MICRSCP IADNA 95303 [facility] STREPTOCO 0 [place] GREGORIO CCUS GROUP B MEDICALCE MEDICALCE AMPLIFIED NTER NTER PROBE TQ BLOOD 18197 [facility] EDW COUNT 0 POINT HEMOGLOBI FAMILY N CARE, IN MOLEC 79802 [facility] ISOL/XTRJ 0 [facility] HP NUCLEIC MEDICALCE MEDICALCE ACID EA NTER NTER TYPE IADNA 64442 [facility] CHLAMYDIA 0 [facility] TRACHOMAT MEDICALCE MEDICALCE IS NTER NTER AMPLIFIED PROBE TQ URNLS DIP 20125 [facility] EDW 0 POINT STICK/TAB FAMILY LET RGNT CARE, IN NON-AUTO W/O MICRSCP URNLS DIP 98775 [facility] EDW 0 POINT STICK/TAB FAMILY LET RGNT CARE, IN NON-AUTO W/O MICRSCP URNLS DIP 99340 [facility], 0 POINT EDWARD C STICK/TAB FAMILY LET RGNT CARE, NON-AUTO INC. W/O MICRSCP URNLS DIP 85767 [facility], 0 POINT EDWARD C STICK/TAB FAMILY LET RGNT CARE, NON-AUTO INC. W/O MICRSCP COLLECTIO 32700 [facility], N VENOUS 0 POINT EDWARD C BLOOD FAMILY VENIPUNCT CARE, URE INC. GLUCOSE 08562 [facility] POST 0 [facility] GLUCOSE DOSE MEDICALCE MEDICALCE NTER NTER URNLS DIP 00340 [facility], 0 POINT MARGO A STICK/TAB FAMILY LET RGNT CARE, NON-AUTO INC. W/O MICRSCP US PREG 47812 [facility] COPPAGE, UTERUS 0 MATERNAL ALVIN H W/DETAIL MEDICINE YENY 1ST INC GESTATION BLOOD 38160 ST COUNT 0 [facility] AUTO&AUTO DIFRNTL WBC COLLECTIO 77843 [facility] N VENOUS 0 [facility] VENIPUNCT URE URNLS DIP 25618 [facility] 0 [facility] LET RGNT NON-AUTO W/O MICRSCP GONADOTRO 12155 [facility] PIN 0 [facility] QUANTITAT ALFREDO URNLS DIP 63773 [facility], 0 POINT MARISAN JOSE STICK/TAB FAMILY LET RGNT CARE, NON-AUTO INC. W/O MICRSCP COLLECTIO 94195 [facility] KIMMY, N VENOUS 0 [facility] VENIPUNCT CARE, URE INC. IADNA 31838 [facility] NEISSERIA 0 [facility] GONORRHOE MEDICALCE MEDICALCE AE NTER NTER AMPLIFIED PROBE TQ IADNA 10775 [facility] CHLAMYDIA 0 [facility] TRACHOMAT MEDICALCE MEDICALCE IS N[place] 05080 [facility] JOHN UTERUS 0 MATERNAL DARNELL AFTER 1ST ME TRIMEST GESTATION Encounters Encounter Start End Date Code Location Performer Type Date EMERGENCY 25402 [facility] JACOBSON 7 7 EMERGENCY DEPARTMEN T VISIT PHYSICIAN MODERATE S SEVERITY EMERGENCY 11640 [facility] GORD[facility] 7 7 EMERGENCY DEPARTMEN T VISIT PHYSICIAN HIGH/URGE S NT SEVERITY [facility] - [facility] 7 7 [facility] 72170 [facility] OUT[facility] 7 7 [facility] II T VISIT 25 PHYSICIAN MINUTES S OFFICE 84[address] [facility] M[facility] OUTPATIEN 6 6 [facility] EMMA T VISIT 15 PHYSICIAN MINUTES S OFFICE 35323 [facility] OUTPATIEN 6 6 [facility] EMMA T VISIT 15 PHYSICIAN MINUTES HOSPITAL [address] YAIMA - 6 6 [facility] OUTPATIEN [facility] T OFFICE 63440 [facility] LONI OUTPATIEN 6 6 PHYSICIAN MARCEL T VISIT S GROUP 15 MINUTES HOSPITAL Y[facility]A - 6 6 [facility] OUTPATIEN [facility] T OFFICE 62626 [facility] LONI OUTPATIEN 6 6 PHYSICIAN MARCEL T VISIT S GROUP 15 MINUTES HOSPITAL Y[facility]IMA - 6 6 [facility] OUTPATIEN INC T EMERGENCY 85797 [facility] CHAUDHARY 6 6 PHYSIC[facility]MEN S, [facility] HIGH/URGE NT SEVERITY HOSPITAL YAIMA - 6 6 [facility] OUTPATIEN [facility] T EMERGENCY 42513 [facility] DEPT 6 6 [facility] VISIT INC HIGH SEVERITY& THREAT FUNCJ OFFICE 26668 [facility] LONI OUTPATIEN 6 6 PHYSICIAN MARCEL T VISIT S GROUP 25 MINUTES HOSPITAL YAIMA - 6 6 [facility] OUTPATIEN [facility] T EMERGENCY 10282 [facility] 6 6 [facility] DEPARTMEN INC T VISIT LOW/MODER SEVERITY HOSPITAL YAIMA - 6 6 [facility] OUTPATIEN [facility] T EMERGENCY 44663 [facility] CHAUDHARY 6 6 PHYSICIAN DEPARTMEN S, PLLC T VISIT HIGH/URGE NT SEVERITY HOSPITAL ST OTHER 6 6 [facility] REPA[facility] PERSON ST OFFICE [address] [facility] OUTPATIEN 6 6 [facility] T VISIT 25 PHYSICIAN MINUTES S EMERGENCY 78242 [facility] RUANO 6 6 EMERGENCY ANT DEPARTMEN T VISIT PHYSICIAN HIGH/URGE S NT SEVERITY EMERGENCY 40289 A[facility] ESTRADA JR 5 5 EMERGENCY ALEXSANDER DEPARTMEN T VISIT PHYSICIAN HIGH/URGE S NT SEVERITY OFFICE [address] [facility] OUTPATIEN 5 5 [facility] T VISIT 15 PHYSICIAN MINUTES S OFFICE 53286 [facility] OUTPATIEN 5 5 [facility] T VISIT 25 PHYSICIAN MINUTES S HOSPITAL Y[facility]IMA - 5 5 [facility] OUTPATIEN [facility] ST - 4 4 [facility] INPATIENT [facility] [employer] REPAIR PERSON ST EMERGENCY 28536 [facility] 4 4 DARNELL DARNELL DEPARTMEN T VISIT HIGH/URGE NT SEVERITY EMERGENCY 62851 [facility] LELE DEPARTMEN MED CTR T VISIT MODERATE SEVERITY EMERGENCY 39170 [facility]DR[facility] 2 2 [facility] ANDRA DEPARTMEN MED CTR T VISIT MODERATE SEVERITY OFFICE 55380 [facility] OUTPAT[facility] 2 2 POINT T VISIT FAMILY 25 CARE, IN MINUTES EMERGENCY 64784 ST [facility] 2 2 [facility] MAR DEPARTMEN MED CTR T VISIT HIGH/URGE NT SEVERITY HOSPITAL ST - 2 2 [facility] INPATIENT MEDICALCE NTER EMERGENCY 24514 ST 2 2 [facility] DEPARTMEN T VISIT MEDICALCE LOW/MODER NTER SEVERITY HOSPITAL ST - 2 2 [facility] OUTPATIEN T MEDICALCE [facility] HOSPITAL ST - 2 2 [facility] OUTPATIEN T MEDICALCE NT HOSPITAL ST - 2 2 [facility] OUTPATIEN T MEDICALCE NTER OFFICE 38014 [facility] OUTPATIEN 2 2 MATERNAL T NEW 20 ME MINUTES OFFICE 20312 ST LINDA OUTPATIEN 1 1 [facility] DARNELL T VISIT 15 PHYSICIAN MINUTES S EMERGENCY 07251 [facility] LELE 1 1 [facility] DEPARTMEN MED CTR T VISIT HIGH/URGE NT SEVERITY HOSPITAL ST. - 1 1 [facility] OUTPATIEN DAMIAN T EMERGENCY 39783 [facility] 1 1 [facility] ANGELICA DEPARTMEN MED CTR T VISIT MODERATE SEVERITY HOSPITAL ST - 0 0 [facility] INPATIENT MEDICALCE NTER OFFICE 48947 [facility]W OUTPATIEN 0 0 POINT T VISIT FAMILY 10 CARE, IN MINUTES OFFICE 45412 [facility] OUTPATIEN 0 0 POINT T VISIT FAMILY 10 CARE, IN MINUTES OFFICE 82699 [facility] OUTPATIEN 0 0 POINT T VISIT FAMILY 10 CARE, IN MINUTES HOSPITAL ST - 0 0 [facility] OUTPATIEN T MEDICALCE NTER OFFICE 34498 [facility] EDW OUTPATIEN 0 0 POINT T VISIT FAMILY 10 CARE, IN MINUTES OFFICE 36287 [facility] EDW OUTPATIEN 0 0 POINT T VISIT FAMILY 10 CARE, IN MINUTES OFFICE 15317 [facility], OUTPATIEN 0 0 POINT EDWARD C T VISIT FAMILY 10 CARE, MINUTES INC. OFFICE 00411 [facility], OUTPATIEN 0 0 POINT EDWARD C T VISIT FAMILY 10 CARE, MINUTES INC. HOSPITAL ST - 0 0 [facility] OUTPATIEN T MEDICALCE NTER OFFICE 10064 [facility], OUTPATIEN 0 0 POINT MARGO A T VISIT FAMILY 10 CARE, MINUTES INC. HOSPITAL ST - 0 0 [facility] OUTPATIEN T MEDICALCE NTER EMERGENCY 57677 [facility], 0 0 [facility]IO LISSETH [place] DEPARTMEN MED CTR T VISIT HIGH/URGE NT SEVERITY HOSPITAL ST - 0 0 [facility] OUTPATIEN HOSPITAL T OFFICE 14595 [facility] KIMMY, OUTPATIEN 0 0 POINT CHLOESAN JOSE T VISIT FAMILY [address] [place] [address], [facility] - 0 0 [facility]
--- OUTSIDE RECORDS SUMMARY | 2017-02-04 18:30 | External Medical Summary Rpt ---
Author Author , Organization [employer] Address Unknown Phone Unavailable Care Team Providers Care Director Of Aviation Name Role Phone BEINEKE ANDRA, DARIOINEBRUCE Unavailable [...] Unavailable Unavailable JULIEN JORGE [facility] # [id number], Unavailable Unavailable [facility] # [id number] KIMMY, MARIHELEN, Unavailable Unavailable KIMMY, MARIHELEN FEEBACK [...] HARPEL MADALYN, HARPEL Unavailable Unavailable MADALYN [facility] Un[facility], [facility] Unavailable [facility]available CARE, IN, [facility], IN [facility], Unavailable Unavailable [facility] ACEVEDO JET, ACEVEDO JET Unavailable Unavailable [facility] Unavailable Unavailable [facility], [facility] # Unavailable Unavailable [id number], [facility] # [id number] LOWE LELE, LOWE LELE Unavailable Unavailable MCDANIEL [...] [facility] Unavailable Unavailable [facility], [facility] ELISABETH THO, ELISABETH Unavailable Unavailable THO GAVIRIA JOSH, GAVIRIA JOSH Unavailable Unavailable SOWER LELE, SOWER LELE Unavailable Unavailable [facility] Unavailable Unavailable [facility] Unavailable [facility]available [facility], [facility]available Unavailable [facility] Unavailable Unavailable [facility] , [facility] Unavailable Unavailable [facility], [facility] Unavailable [facility]available PHYSICIANS, [facility] . OKLEE DAMIAN, Unavailable Unavailable [facility] DAMIAN ELLIS GRE, ELLIS Unavailable Unavailable GRE THRELKELD II, Unavailable Unavailable THRELKELD II [facility] Unavailable Unavailable ME, [facility] KAREN SCO, KAREN SCO Unavailable Unavailable WILLOBY DARNELL, WILLOBY Unavailable Unavailable DARNELL Purpose Continuity of Care Document - 12-01-2009 through 2016 Problems Code Diagnosis DOS Provider Status B354 TINEA 12-16-2016 [facility] CORPORIS EMERGENCY PHYSICIANS N10 ACUTE 10-10-2016 [facility] PYELONEPHRI EMERGENCY TIS PHYSICIANS R112 NAUSEA WITH 10-10-2016 [facility] VOMITING EMERGENCY UNSPECIFIED PHYSICIANS N390 URINARY 10-09-2016 TRA[facility] [place] INFECTION PHYSICIANS SITE NOT SPECIFIED R110 NAUSEA 10-09-2016 [facility] R300 DYSURIA 10-09-2016 [facility] PHYSICIANS Z6827 BODY MASS 10-09-2016 [facility] BMI [place] 27.0-27.9 PHYSICIANS ADULT [id number] CHRONIC 07-03-2016 MIGRAINE GREG[facility]IO W/O AURA PHYSICIANS NOT INTRACT W/O SM Y38751 MIGRAINE 07-03-2016 UNS [facility] INTRACTABLE PHYSICIANS W/O STATUS MIGRAINOSUS M542 CERVICALGIA 03-27-2016 ST [facility] PHYSICIANS R590 LOCALIZED 03-27-2016 ENLARGED [facility]REG[facility]IO LYMPH NODES PHYSICIANS U192QCV STRAIN 03-27-2016 MUSCLE FASC GREG[facility]IO & TENDON PHYSICIANS NECK LEVL INIT ENC Z6826 BODY MASS 03-27-2016 INDEX BMI GREGORIO 26.0-26.9 PHYSICIANS ADULT Z302 ENCOUNTER 03-06-2016 [facility] STERILIZATI GROUP ON O80 ENCOUNTER 03-05-2016 [facility] FULL-TERM GROUP UNCOMPLICAT ED DELIVERY Z370 SINGLE LIVE 03-05-2016 [facility] Z3A39 39 WEEKS 03-05-2016 [facility] [id number] OTHER SPEC 02-24-2016 [facility] COND UNS TRIMESTER [id number] MATERNAL 02-24-2016 [facility] INC PRESENTATIO N NA/UNS Z3A00 WEEKS OF 02-24-2016 [facility] NOT SPECIFIED Z3480 ENC 02-21-2016 [facility] SUPERVISION PHYSICIANS OTH NORMAL GROUP PREG UNS TRIMESTER I25397 DRUG USE 02-14-2016 [facility] COMPLICATIN PHYSICIANS G GROUP UNS TRIMESTER M549 DORSALGIA 01-31-2016 [facility] UNSPECIFIED [facility] INC M54901 OTHER SPEC 01-31-2016 [facility] RELATED INC COND 3RD TRIMESTER O471 FALSE LABOR 01-31-2016 [facility] AT/AFTER PHYSICIANS 37 GROUP COMPLETED WEEKS GEST Z3A35 35 WEEKS 01-31-2016 [facility] R93936 OTHER SPEC 12-09-2015 [facility] COND 2ND TRIMESTER R109 UNSPECIFIED 12-09-2015 [facility] ABDOMINAL CO PAIN AMBULANCE TAXIN M20396R ABRASION 12-09-2015 [facility] LEFT KNEE [facility] INITIAL INC ENCOUNTER Z041 ENCOUNTER 12-09-2015 [place] EXAM&OBSERV MEDICAL FOLLOW IMAGING ASS TRANSPORT ACCIDENT Z3402 ENCOUNTER 12-09-2015 [facility] FRAGOSO PHYSICIANS, NORMAL PLLC FIRST PREG 2 TRIMESTER Z3483 ENC 12-09-2015 [facility] SUPERVISION [facility] OTH NORMAL INC 3 TRIMESTER Z3A27 27 WEEKS 12-09-2015 [place] GESTATION MEDICAL OF IMAGING ASS Z720 TOBACCO USE 12-09-2015 [facility] INC Z113 ENCOUNTER 12-05-2015 [facility] INFECTIONS SEXL MODE TRANSMISSN Z3201 ENCOUNTER 12-05-2015 [facility] TEST RESULT POSITIVE N3000 ACUTE 11-25-2015 [facility] CYSTITIS PHYSICIANS, WITHOUT PLLC HEMATURIA O2312 INFECTIONS 11-25-2015 [facility] BLADDER IN [facility] INC SECOND TRIMESTER O2692 11-25-2015 [facility] RELATED PHYSICIANS, CONDITIONS PLLC UNS 2ND TRIMESTER R1030 LOWER 11-25-2015 [place] ABDOMINAL MEDICAL PAIN IMAGING ASS UNSPECIFIED Z3A25 25 WEEKS 11-25-2015 [place] GESTATION MEDICAL OF IMAGING ASS 34359 CHEST PAIN 04-15-2015 RAD[facility]OLOG[facility] UNSPECIFIED [facility] 28600 CONTUSION 04-15-2015 [facility] EMERGENCY [facility]ION PHYSICIANS 66853 CHRONIC 03-11-2015 MIGRAINE GREG[facility]IO W/O AURA PHYSICIANS W/O INTRACTABLE W/O SM V242 ROUTINE 02-25-2015 [facility] FOLLOW-UP 6238 OTHER 11-15-2014 [place] SPECIFIED MEDICAL NONINFLAMMA IMAGING ASS TORY DISORDER VAGINA 6259 UNSPEC 11-15-2014 [place] [facility] ASS W/FEMALE GENITAL ORGANS 89259 PREMATURE 11-12-2014 [facility] SEPARATION PONCHO & OF PLACENTA DUBILIER WITH DELIVERY 59314 THREATENED 11-12-2014 [facility] PREMATURE CO LABOR AMBULANCE UNSPEC TAXIN EPIS CARE 68879 INFECTION 11-12-2014 [facility] OF AMNIOTIC PONCHO & CAVITY DUBILIER DELIVERED 91981 ABDOMINAL 11-12-2014 SY[facility]IA PAIN, CO UNSPECIFIED AMBULANCE SITE TAXIN V237 INSUFFICIEN 11-12-2014 KARINE Wu PRATIMA RODRIGUEZ CARE V240 11-12-2014 KARINE CRAWFORD&NISSA ANDUJAR MD ATION IMMED AFTER DELIV 55168 UNSPECIFIED 11-04-2014 KARINE Ding ANTEPARTUM PRATIMA RODRIGUEZ HEMORRHAGE ANTEPARTUM 70717 OLIGOHYDRAM 11-04-2014 [place] NIOS, MEDICAL ANTEPARTUM IMAGING ASS 32681 ABNORM 11-04-2014 [place] HEART MEDICAL IMAGING ASS RATE/RHYTHM ANTPRTM COND/COMP V221 SUPERVISION 10-16-2014 [facility] OF [facility] NORMAL INC 46853 OTH CURRENT 02-11-2014 ST MATERNAL [facility] CCE MED CTR PIE MAKER W/DELIVERY ST 894[address] TOBACCO USE 02-11-2014 ST D/O COMP [facility] PG MED CTR PIE MAKER CHILDBIRTH/ ST PP DELIVERED 650 NORMAL 02-11-2014 DELIVERY [facility] PHYSICIANS 43661 FIRST-DEGRE 02-11-2014 ST E PERINEAL [facility] LACERATION MED CTR PIE MAKER WITH ST DELIVERY V270 OUTCOME OF 02-11-2014 DELIVERY [facility] SINGLE PHYSICIANS LIVEBORN V8901 SPCT PROB 02-04-2014 ST W/AMNIOTIC GREG[facility]IO CAVITY & PHYSICIANS MEMBRANE NOT FOUND 11227 OTHER 12-18-2013 MAYO MIC SPECIFED COMPLICATIO N ANTEPARTUM 7295 PAIN IN 01-03-2012 [facility]FT [facility] TISSUES OF OF [facility] LIMB 41643 UNSPECIFIED 01-02-2012 ST SITE OF [facility] ANKLE MED CTR SPRAIN AND STRAIN 93743 PAIN IN 12-27-2011 [facility] JOINT, ASSOCIATES ANKLE AND OF [facility] FOOT 15706 SPRAIN AND 12-27-2011 ST STRAIN OF GREG[facility]IO UNSPECIFIED MED CTR SITE OF FOOT 9599 INJURY 12-27-2011 RADIOLOGY OTHER AND ASSOCIATES UNSPECIFIED OF [facility] UNSPECIFIED SITE 54885 MIGRAINE 12-25-2011 HEALTH UNSP W/O POINT INTRACT W/O FAMILY STATUS CARE, IN MIGRAINOSUS 13699 ASTHMA, 10-04-2011 ST UNSPECIFIED GREG[facility]IO , MEDICALCENT UNSPECIFIED ER STATUS 5990 URINARY 10-04-2011 ST TRACT [facility] INFECTION MEDICALCENT SITE NOT ER SPECIFIED 83491 INFECTIONS 10-04-2011 ST GENITOURINA GREG[facility]IO RY TRACT MEDICALCENT ER W/DELIV 20220 POOR 10-04-2011 ST GROWTH [facility] AFFECT MEDICALCENT MANAGEMENT ER MOTH DELIV V140 PERSONAL 10-04-2011 ST HISTORY OF [facility] [address] UNSPECIFIED 09-24-2011 ST INFECTIVE [facility] OTITIS MEDICALCENT EXTERNA ER 3829 UNSPECIFIED 09-24-2011 ST [place] [address] OTH CURRENT 09-24-2011 ST MAT CONDS [facility] CLASSIFIABL MEDICALCENT E ELSW ER ANTPRTM 09685 TOB USE D/O 09-24-2011 COMP PG GREG[facility] /PP MEDICALCENT ANTEPARTM ER COND/COMP V148 PERSONAL 09-24-2011 HISTORY [facility] ALLERGY OTH MEDICALCENT SPEC ER MEDICINAL AGTS V5869 LONG-TERM 09-24-2011 (CURRENT) G[facility]IO USE OF MEDICALCENT OTHER ER MEDICATIONS 72877 OTHER 09-19-2011 SPECIFIED GREG[facility]IO DISORDER OF MEDICALCENT KIDNEY AND ER URETER 57774 UNSPECIFIED 09-19-2011 ST ANTEPARTUM [facility] RENAL MEDICALCENT DISEASE ER V235 09-19-2011 ST WITH OTHER [facility] POOR MEDICALCENT REPRODUCTIV ER E HISTORY 06295 BREECH 09-04-2011 PRESENTATIO G[facility]IO N W/O MEDICALCENT MENTION ER VERSION ANTPRTM 15588 UNS 09-04-2011 [facility] ABNORM MGMT MATERNAL MOTH ME ANTPRTM COND/COMP V239 UNSPECIFIED 09-04-2011 [facility] HIGH-RISK MATERNAL ME 5589 OTH&UNSPEC 08-11-2011 NONINFECTIO GREG[facility]IO US MED CTR GASTROENTER ITIS&COLITI S 63798 UNSPECIFIED 08-11-2011 [facility] COMPLICATIO MED CTR N OF ANTEPARTUM 65033 ACUT 05-13-2011 PYELONEPHRI [place] TIS W/O LES MED CTR RENAL MEDULRY NECROS 88714 UNSPECIFIED 05-13-2011 [facility] PYELONEPHRI DAMIAN TIS 05055 INFECTIONS 05-13-2011 . GREGORIO GENITOURINA DAMIAN RY TRACT ANTEPARTUM 7242 LUMBAGO 05-03-2011 [facility] MED CTR 55636 PRECIPITATE 05-22-2010 LAB[facility] WITH MEDICALCENT DELIVERY ER V2389 SUPERVISION 05-16-2010 HEALTH OF OTHER POINT HIGH-RISK FAMILY CARE, IN V220 SUPERVISION 02-07-2010 HEALTH OF NORMAL POINT [facility]. 72726 TOB USE D/O 01-13-2010 [facility] COMP PG MATERNAL /PP UNSPEC EPIS MEDICINE CARE/NA INC V2889 OTHER 01-13-2010 SPECIFIED [facility] MEDICALCENT SCREENING ER 4660 ACUTE 12-28-2009 BRONCHITIS [facility] MED CTR 86237 ABDOMINAL 12-28-2009 ST PAIN, LEFT [facility] LOWER MED CTR QUADRANT 8488 OTHER 12-28-2009 ST SPECIFIED [facility] SITES OF MED CTR SPRAINS AND STRAINS V7240 12-28-2009 ST EXAMINATION GREG[facility]IO /TEST MED CTR UNCONFIRMED V2383 SUPERVISION 12-15-2009 HEALTH HIGH-RISK POINT [facility] PRIMIGRAVID CARE, INC. A 82177 OTH SPEC 12-01-2009 [facility] COMP MATERNAL ME [...] ia de te s n re d FL 59 03 04 30 7 00 KE Ac OC 74 -1 -1 .0 00 NT ti HL 60 8- 4- 00 00 UC ve OR 11 20 20 85 [place] PE 50 17 17 30 RA 6 91 CV ZI S NE PH AR 10 MA CY MG LL TA C, B DB A CV S PH AR MA CY #0 54 37 FL 65 03 03 25 4 00 KE [...] -A 1 73 CE PH TA AR CA MA NO CY PH #5 7. 5- 32 5 CI 65 02 03 14 7 00 KE Ac FL 86 -2 -1 .0 00 NT ti [...] -A 1 87 CE PH TA AR CA MA NO CY PH #5 7. 5- [...] -A 1 00 CE PH TA AR CA MA NO CY PH #5 7. 5- [...] AR Y 10 71 11 11 MA CA 8 CY CH MG # EL LE TA 05 BL 43 ET 7 TO 31 10 10 2 60 30 CV 58 WI Ac PI 72 -2 -2 .0 S 94 LL ti RA 20 7- 7- 00 PH 97 OB ve MA 27 20 20 AR Y TE 96 11 11 MA CA 0 CY CH 50 # EL LE [...] 14 N 38 5- 1 32 5 FL 65 08 09 5 30 30 KR [...] Code Location Performer Comment INJECTION J0696 [facility] G[facility]IO II CEFTRIAXO NE SODIUM PHYSICIAN PER 250 S MG SUSCEPTIB 09456 [facility] LTY STDY 7 GREGORIO PERKINS ANTIMICRB IAL HEALTHCAR HEALTHCAR MICRO/AGA E EDGE E EDGE R DILUTJ THERAPEUT 65634 [facility] IC 7 GREGORIO II PROPHYLAC TIC/DX PHYSICIAN INJECTION S SUBQ/IM CUL BACT 12889 [facility] AEROBIC 7 GREGORIO GREGORIO ADDL METHS HEALTHCAR HEALTHCAR DEFINITIV E EDGE E EDGE E EA ISOL CULTURE 32108 [facility] BACTERIAL 7 OKLEE GREGORIO QUANTTATI HEALTHCAR HEALTHCAR VE COLONY E EDGE E EDGE COUNT URINE INJECTION J2550 ST MCDANIEL 6 GREGORIO CARTER PROMETHAZ INE HCL PHYSICIAN UP TO [address] MCDANIEL IC 6 GREGORIO EMMA PROPHYLAC TIC/DX PHYSICIAN INJECTION S SUBQ/IM INJECTION J1040 ST MCDANIEL 6 GREGORIO CARTER METHYLPRE DNISOLONE PHYSICIAN ACETATE S 80 MG ANES IPER 39607 COMMUNITY FEEBACK LWR ABD 6 ANESTH REE W/LAPS OF THE TUBAL BLUE LIGATION/ TRANSECT LIG/TRNSX 69047 [facility] IVEY J FLP 6 PHYSICIAN MARCEL TUBE S GROUP ABDL/VAG POSTPARTU M SPX OCCLUSION [id number] [facility] ERWIN MARCUS 6 [facility] FALLOPIAN INC INC TUBES EXTRALUM DEV OPEN DELIVERY [id number] Y[facility]A ERWIN PRODUCTS 6 [facility] OF INC INC CONCEPTIO N EXTERNAL NEURAXIAL 99342 COMMUNITY FEEBACK LABOR 6 ANESTH REE ANALG/ANE OF THE S PLND BLUE VAGINAL DELIVERY VAGINAL 40726 [facility] IVEY DELIVERY 6 PHYSICIAN MARCEL ONLY S GROUP W/POSTPAR GIANCARLO CARE DOPPLER 03901 [facility] VELOCIMET 6 MEDICAL RY IMAGING UMBILICAL ASS ARTERY 33433 [facility] BIOPHYSIC 6 MEDICAL AL IMAGING PROFILE ASS W/O NON-STRES S TESTING PARTICLE 25508 [facility] ERWIN AGGLUTINA 6 [facility] TION INC INC SCREEN EACH ANTIBODY DRUG TST G0477 [facility] PRESUMP;C 6 PHYSICIAN PHYSICIAN PBL BEING S GROUP S GROUP READ DC OPT OBV ONLY 74805 [facility] HARPEL NONSTRESS 6 PHYSICIAN MADALYN TEST S GROUP URNLS DIP 02436 [facility] ERWIN 6 [facility] STICK/TAB INC INC LET REAGENT AUTO MICROSCOP Y TOBACCO 27653 [facility] ERWIN USE 6 [facility] CESSATION INC INC INTERMEDI ATE 3-10 MINUTES EVAL C/V 43607 [facility] ERWIN AMNIOTIC 6 [facility] FLUID INC INC PROTEIN QUAL EA SPECIMEN CULTURE 34022 [facility] ERWIN BACTERIAL 6 [facility] [place] [address] [facility] 6 MEDICAL JORGE UTERUS IMAGING LIMITED ASS 1/> FETUSES 75390 [facility] BIOPHYSIC 6 MEDICAL AL IMAGING PROFILE ASS W/O NON-STRES S TESTING AMB A0427 [facility] SYLVIA SERVICE 6 CO CO ALS AMBULANCE AMBULANCE EMERGENCY TAXIN TAXIN TRANSPORT LEVEL 1 GROUND A0425 SYLVIA SYLVIA MILEAGE 6 CO CO PER AMBULANCE AMBULANCE STATUTE TAXIN TAXIN MILE DOPPLER 02532 [facility] VELOCIMET 6 MEDICAL RY IMAGING UMBILICAL ASS ARTERY CYTP C/V 42469 [facility], AUTO THIN 6 [facility] LYR PREPJ SCR MNL RESCR PHYS DRUG TST G0477 [facility] IVEY PRESUMP;C 6 PHYSICIAN MARCEL PBL BEING S GROUP READ DC OPT OBV ONLY COLLECTIO 32864 [facility] ERWIN N VENOUS 6 [facility] BLOOD INC INC VENIPUNCT URE OBSTETRIC 77400 [facility] ERWIN PANEL 6 [facility] INC INC INF AGT G0432 [facility] ERWIN AB DETECT 6 [facility] EIA TECH INC INC HIV-1&/HI V-2 SCR IADNA 61505 [facility] NEISSERIA 6 [facility] GONORRHOE AE AMPLIFIED PROBE TQ IADNA 91119 [facility], CHLAMYDIA 6 [facility] TRACHOMAT IS AMPLIFIED [place] T[place] PREG 97693 [facility] UTERUS 6 MEDICAL AFTER 1ST IMAGING TRIMEST ASS 1/ GESTATION CULTURE 80353 [facility] ERWIN BACTERIAL 6 [facility] INC INC QUANTTATI VE COLONY COUNT URINE CULTURE 67404 [facility] ERWIN BCT 6 [facility] ISOL&PRSM INC INC PTV ID ISOLATE EA URINE SMR PRIM 62354 Y[facility]A ERWIN SRC WET 6 [facility] MOUNT INC INC NFCT AGT TISS CECELIA 49092 [facility] ERWIN SLIDE 6 [facility] SAMPS INC INC SKN/HR/NL S FNGI/ECTO PARASIT URNLS DIP 90014 [facility] ERWIN 6 [facility] STICK/TAB INC INC LET REAGENT AUTO MICROSCOP Y SUSCEPTIB 89168 YIAMA ERWIN LTY STDY 6 [facility] ANTIMICRB INC INC IAL MICRO/AGA R DILUTJ US PREG 15165 [facility] ERWIN UTERUS 6 [facility] W/DETAIL INC INC YENY 1ST GESTATION CULTURE 70325 [facility] BACTERIAL 6 GREGORIO GREGORIO MED CTR MED CTR QUANTTATI PIE MAKER ST PIE MAKER ST VE COLONY COUNT URINE RADIOLOGI 37527 RADI[facility]Y KAREN SCO C EXAM 5 CHEST 2 ASSOCIATE VIEWS S OF NOTH FRONTAL&L ATERAL CYTP C/V 27575 [facility], AUTO THIN 5 [employer] [place] [address] [place] [facility] TRANSVAGI 5 MEDICAL ANDRA NAL IMAGING ASS AMBULANCE A0429 SYLVIA SYLVIA SERVICE 5 CO CO BLS AMBULANCE AMBULANCE EMERGENCY TAXIN TAXIN TRANSPORT GROUND A0425 [facility]IA SYLVIA MILEAGE 5 CO CO PER AMBULANCE AMBULANCE STATUTE TAXIN [place] V 78909 [facility] DARNELL SURG 5 PONCHO & PATHOLOGY MARIANAILILEON GROSS&DARNELL ROSCOPIC EXAM DELIVERY 78339 KARINE ANDUJAR PLACENTA 5 PRATIMA RODRIGUEZ MADALYN SEPARATE PROCEDURE 59[address] [facility] 5 MEDICAL JORGE AL IMAGING PROFILE ASS W/O NON-STRES S TESTING INITIAL 61669 AKRINE ANDUJAR OBSERVATI 5 PRATIMA BERGMAN ON CARE/DAY 50 MINUTES GONADOTRO 52531 Y[facility]A ERIWN PIN 5 [facility] CHORIONIC INC INC QUANTITAT ALFREDO COLLECTIO 93524 Y[facility]A [facility]WIN N VENOUS 5 [facility] BLOOD INC [place] [address] [facility] LOZADA DON SURG 4 G[facility]IO PATHOLOGY MED CTR GROSS&DARNELL ROSCOPIC EXAM NEURAXIAL 74412 INDEPENDE MASROOR LABOR 4 NT ALA ANALG/ANE ANESTHESI S PLND OLOGIST VAGINAL DELIVERY OTHER [address] MANUALLY 4 GREGORIO PERKINS ASSISTED MED CTR MED CTR DELIVERY PIE MAKER ST PIE MAKER ST VAGINAL [address] ST PRADO DELIVERY 4 GREGORIO MAR ONLY PHYSICIAN S [address] ST ELISABETH NONSTRESS 4 GREGORIO THO TEST PHYSICIAN S SBSQ 48799 ST ELISABETH OBSERVATI 4 GREGORIO THO ON CARE/DAY PHYSICIAN 25 S MINUTES FERN TEST Q0114 [facility] THO PHYSICIAN S RADEX 29176 [facility] RADIOLOGY CALCANEUS 2 MINIMUM ASSOCIATE ASSOCIATE 2 VIEWS S OF NOTH S OF NOTH RADEX 57315 [facility] RADIOLOGY ANKLE 2 COMPLETE ASSOCIATE ASSOCIATE MINIMUM 3 S OF NOTH S OF NOTH VIEWS RADEX 71008 [facility] RADIOLOGY FOOT 2 COMPLETE ASSOCIATE ASSOCIATE MINIMUM 3 S OF NOTH S OF NOTH VIEWS OTHER [address]359 ST MANUALLY 2 GREGORIO PERKINS ASSISTED DELIVERY MEDICALCE MEDICALCE NTER NTER AMBULANCE A0429 [facility] SERVICE 2 FIRE FIRE BLS DEPT DEPT EMERGENCY TRANSPORT GROUND A0425 [facility] MILEAGE 2 FIRE FIRE PER DEPT DEPT STATUTE MILE INJECTION J0696 [facility] 2 GREGORIO PERKINS CEFTRIAXO NE SODIUM MEDICALCE MEDICALCE PER 250 NTER NTER MG THERAPEUT 86079 [facility] IC 2 GREGORIOINES PERKINS PROPHYLAC TIC/DX MEDICALCE MEDICALCE INJECTION NTER NTER SUBQ/IM US PREG 39411 [facility] UTERUS 2 GREGORIO PERKINS REAL TIME F/U MEDICALCE MEDICALCE TRNSABDL NTER NTER PER FETUS US PREG 15428 [facility] UTERUS 2 GREGORIO PERKINS W/DETAIL MEDICALCE MEDICALCE YENY 1ST NTER NTER GESTATION IADNA 32879 [facility] MULTIPLE 2 DIAGNOSTI DIAGNOSTI ORGANISMS CS CS DIRECT PROBE TQ GLUCOSE 45925 [facility] TOLERANCE 2 DIAGNOSTI DIAGNOSTI TEST GTT CS CS 3 SPECIMENS CUL 23558 [facility] PRSMPTV 2 DIAGNOSTI DIAGNOSTI PTHGNC CS CS ORGANISM SCRN W/COLONY ESTIMJ CULTURE 17528 [facility] BACTERIAL 2 DIAGNOSTI DIAGNOSTI CS CS QUANTTATI VE COLONY COUNT URINE OBSERVATI 99622 [facility] ALL ON/INPATI 1 [facility] HOSPITAL CARE [address] [facility] METABOLIC 1 GREGORIO PERKINS PANEL DAMIAN DAMIAN CALCIUM TOTAL CULTURE [address] BACTERIAL 1 [place] GREGORIO DAMIAN DAMIAN QUANTTATI VE COLONY COUNT URINE BLOOD [address] COUNT 1 GREGORIO GREGORIO COMPLETE DAMIAN DAMIAN AUTO&[place] [address] INFUSION 1 GREGORIOSTEPHEN FIELDSTH THERAPY/P DAMIAN DAMIAN ROPHYLAXI S /DX 1ST TO [address] IC 1 GREGORIO GREGORIO INJECTION DAMIAN DAMIAN IV PUSH EACH NEW DRUG COLLECTIO [address] N VENOUS 1 GREGORIO GREGORIO BLOOD DAMIAN DAMIAN VENIPUNCT URE URINE [address] 1 GREGORIO FIELDSTH TEST DAMIAN DAMIAN VISUAL COLOR CMPRSN METHS URNLS DIP [address] 1 GREGORIO GREGORIO STICK/TAB DAMIAN DAMIAN LET RGNT NON-AUTO W/O MICRSCP OTHER 7309 [facility] ARTIFICIA 0 GREGORIO GREGORIO L RUPTURE OF MEDICALCE MEDICALCE MEMBRANES NTER NTER OTHER [address] MANUALLY 0 GREOGRIO GREGORIO ASSISTED DELIVERY MEDICALCE MEDICALCE NTER NTER REPAIR OF 75[address] ST OTHER 0 GREG[place]IO GREGORIO CURRENT OBSTETRIC MEDICALCE MEDICALCE NTER NTER LACERATIO N NEURAXIAL 64752 [facility] 0 NT ANALG/ANE ANESTHESI S PLND OLOGIST VAGINAL DELIVERY OTHER 9649 [facility] GENITOURI 0 [facility] NARY INSTILLAT MEDICALCE MEDICALCE ION NTER NTER URNLS DIP 65168 [facility] EDW 0 POINT STICK/TAB FAMILY LET RGNT CARE, IN NON-AUTO W/O MICRSCP URNLS DIP 36746 [facility] EDW 0 POINT STICK/TAB FAMILY LET RGNT CARE, IN NON-AUTO W/O MICRSCP IADNA 11500 [facility] NEISSERIA 0 [facility] GONORRHOE MEDICALCE MEDICALCE AE NTER NTER AMPLIFIED PROBE TQ URNLS DIP 62883 [facility] EDW 0 POINT STICK/TAB FAMILY LET RGNT CARE, IN NON-AUTO W/O MICRSCP IADNA 59300 [facility] STREPTOCO 0 GREGORIO GREGORIO CCUS GROUP B MEDICALCE MEDICALCE AMPLIFIED NTER NTER PROBE TQ BLOOD 27772 [facility] EDW COUNT 0 POINT HEMOGLOBI FAMILY N CARE, IN MOLEC 57584 [facility] ISOL/XTRJ 0 [facility] HP NUCLEIC MEDICALCE MEDICALCE ACID EA NTER NTER TYPE IADNA 51865 [facility] CHLAMYDIA 0 [facility] TRACHOMAT MEDICALCE MEDICALCE IS NTER NTER AMPLIFIED PROBE TQ URNLS DIP 02386 [facility] EDW 0 POINT STICK/TAB FAMILY LET RGNT CARE, IN NON-AUTO W/O MICRSCP URNLS DIP 83500 [facility] EDW 0 POINT STICK/TAB FAMILY LET RGNT CARE, IN NON-AUTO W/O MICRSCP URNLS DIP 15016 [facility], 0 POINT [place] C STICK/TAB FAMILY LET RGNT CARE, NON-AUTO INC. W/O MICRSCP URNLS DIP 83267 [facility], 0 POINT [place] C STICK/TAB FAMILY LET RGNT CARE, NON-AUTO INC. W/O MICRSCP COLLECTIO 73559 [facility], N VENOUS 0 POINT [place]WARD C BLOOD FAMILY VENIPUNCT CARE, URE INC. GLUCOSE 13865 [facility] POST 0 [facility] GLUCOSE DOSE MEDICALCE MEDICALCE NTER NTER URNLS DIP 55908 [facility], 0 POINT MARGO A STICK/TAB FAMILY LET RGNT CARE, NON-AUTO INC. W/O MICRSCP [place] PREG 44007 [facility], UTERUS 0 MATERNAL ALVIN H W/DETAIL MEDICINE YENY 1ST INC GESTATION BLOOD [address]1446 ST COUNT 0 [facility] AUTO&AUTO DIFRNTL WBC COLLECTIO 52080 [facility] N VENOUS 0 [facility] [place] VENIPUNCT URE URNLS DIP 73099 [facility] 0 [facility] LET RGNT NON-AUTO W/O MICRSCP GONADOTRO 80670 [facility] PIN [address] [facility] QUANTITAT ALFREDO URNLS DIP 15516 [facility], 0 POINT [place] STICK/TAB FAMILY LET RGNT CARE, NON-AUTO INC. W/O MICRSCP COLLECTIO 76391 [facility] [place], N VENOUS 0 [facility] VENIPUNCT CARE, URE INC. IADNA 42492 [facility] NEISSERIA 0 [facility] GONORRHOE MEDICALCE MEDICALCE AE NTER NTER AMPLIFIED PROBE TQ IADNA 33135 [facility] [facility] MEDICALCE MEDICALCE IS NTER NTER [place]PLIF[place] PREG 23031 [facility] 0 MATERNAL DARNELL AFTER 1ST ME TRIMEST GESTATION Encounters Encounter Start End Date Code Location Performer Type Date EMERGENCY 60956 [facility] JACOBSON 7 7 EMERGENCY DEPARTMEN T VISIT PHYSICIAN MODERATE S SEVERITY EMERGENCY 15171 [facility] [place] 7 7 EMERGENCY DEPARTMEN T VISIT PHYSICIAN HIGH/URGE S NT SEVERITY [facility] - OTHER 7 7 [facility] 57941 [facility] OUTPATI[facility] 7 7 [facility] II T VISIT 25 PHYSICIAN MINUTES S OFFICE [address] [facility] M[facility]ANI[facility] OUTPATIEN 6 6 [facility] EMMA T VISIT 15 PHYSICIAN MINUTES S OFFICE [address] [facility] MCDANIEL OUTPATIEN 6 6 [facility] EMMA T VISIT 15 PHYSICIAN MINUTES HOSPITAL [address] [facility] - 6 6 [facility] T OFFICE 49944 [facility] OUTPATIEN 6 6 PHYSICIAN MARCEL T VISIT S GROUP 15 MINUTES HOSPITAL [facility] - 6 6 [facility] T OFFICE 88672 [facility] OUTPATIEN 6 6 PHYSICIAN MARCEL T VISIT S GROUP 15 MINUTES HOSPITAL [facility] - 6 6 [facility] OUTPATIEN INC T EMERGENCY 76985 [facility] CHAUDHARY 6 6 [facility] H[facility]/URGE NT SEVERITY [facility]OSPITAL [facility] - 6 6 [facility] T EMERGENCY 16414 [facility] DEPT 6 6 [facility] VISIT INC HIGH SEVERITY& THREAT FUNCJ OFFICE 20944 [facility] OUTPATIEN 6 6 PHYSICIAN MARCEL T VISIT S GROUP 25 MINUTES HOSPITAL [facility] - 6 6 [facility] T EMERGENCY 99854 [facility] 6 6 [facility] DEPARTMEN INC T VISIT LOW/MODER SEVERITY [facility]OSPITAL [facility] - 6 6 [facility] T EMERGENCY 50714 [facility] CHAUDHARY 6 6 PHYSICIAN DEPARTMEN S, PLLC T VISIT HIGH/URGE NT SEVERITY HOSPITAL ST OTHER 6 6 [facility] OFFICE [address] [facility] OUTPATIEN 6 6 [facility] T VISIT 25 PHYSICIAN MINUTES S EMERGENCY 33263 ASH RUANO 6 6 EMERGENCY ANT DEPARTMEN T VISIT PHYSICIAN HIGH/URGE S NT SEVERITY EMERGENCY 18327 ASH ESTRADA JR 5 5 EMERGENCY ALEXSANDER DEPARTMEN T VISIT PHYSICIAN HIGH/URGE S NT SEVERITY OFFICE 414[address] [facility] OUTPATIEN 5 5 [facility] T VISIT 15 PHYSICIAN MINUTES S OFFICE [address] [facility] OUTPATIEN 5 5 [facility] T VISIT 25 PHYSICIAN MINUTES S HOSPITAL [facility]IMA - 5 5 [facility] OUTPATIEN [facility] ST - 4 4 [facility] INPATIENT [facility] PIE MAKER [facility] EMERGENCY 30323 [facility] 4 4 DARNELL DARNELL DEPARTMEN T VISIT HIGH/URGE NT SEVERITY EMERGENCY 90612 [facility]PART[facility] T VISIT MODERATE SEVERITY EMERGENCY 94837 SANDRA 2 2 [facility] ANDRA DEPARTMEN MED CTR T VISIT MODERATE SEVERITY OFFICE 00866 [facility] OUTPATIEN 2 2 POINT T VISIT FAMILY 25 CARE, IN MINUTES EMERGENCY 93302 ST OSTERLUND 2 2 [facility] MAR DEPARTMEN MED CTR T VISIT HIGH/URGE NT SEVERITY HOSPITAL ST - 2 2 [facility] INPATIENT MEDICALCE NTER EMERGENCY 73891 ST 2 2 [facility] DEPARTMEN T VISIT MEDICALCE LOW/MODER NTER SEVERITY HOSPITAL ST - 2 2 [facility] OUTPATIEN T MEDICALCE [facility] ST - 2 2 [facility] OUTPATIEN T MEDICALCE NT HOSPITAL ST - 2 2 [facility] OUTPATIEN T MEDICALCE NTER OFFICE 12114 [facility] OUT[facility] 2 2 MATERNAL T NEW 20 ME MINUTES OFFICE 11936 ST LINDA OUTPATIEN 1 1 [facility] DARNELL T VISIT 15 PHYSICIAN MINUTES S EMERGENCY 32746 [facility] LE[facility] 1 1 [facility] DEPARTMEN MED CTR T VISIT HIGH/URGE NT SEVERITY HOSPITAL ST. - 1 1 [facility] OUTPATIEN DAMIAN T EMERGENCY 19461 [facility] 1 1 [facility] ANGELICA DEPARTMEN MED CTR T VISIT MODERATE SEVERITY HOSPITAL ST - 0 0 [facility] INPATIENT MEDICALCE NTER OFFICE 17044 [facility] EDW OUTPATIEN 0 0 POINT T VISIT FAMILY 10 CARE, IN MINUTES OFFICE 97547 [facility] EDW OUTPATIEN 0 0 POINT T VISIT FAMILY 10 CARE, IN MINUTES OFFICE 59161 [facility] EDW OUTPATIEN 0 0 POINT T VISIT FAMILY 10 CARE, IN MINUTES HOSPITAL ST - 0 0 [facility] OUTPATIEN T MEDICALCE NTER OFFICE 33348 [facility] EDW OUTPATIEN 0 0 POINT T VISIT FAMILY 10 CARE, IN MINUTES OFFICE 87207 [facility] EDW OUTPATIEN 0 0 POINT T VISIT FAMILY 10 CARE, IN MINUTES OFFICE 18040 [facility], OUTPATIEN 0 0 POINT EDWARD C T VISIT FAMILY 10 CARE, MINUTES INC. OFFICE 40817 [facility], OUTPATIEN 0 0 POINT EDWARD C T VISIT FAMILY 10 CARE, MINUTES [facility] ST - 0 0 [facility] OUTPATIEN T MEDICALCE NTER OFFICE 29825 [facility], OUTPATIEN 0 0 POINT MARGO A T VISIT FAMILY 10 CARE, MINUTES INC. HOSPITAL ST - 0 0 [facility] OUTPATIEN T MEDICALCE NTER EMERGENCY 56769 [facility], 0 0 [facility] LISSETH [place] DEPARTMEN MED CTR T VISIT HIGH/URGE NT SEVERITY HOSPITAL ST - 0 0 [facility] OUTPATIEN HOSPITAL T OFFICE 23215 [facility] KIMMY, OUTPATIEN 0 0 POINT CHLOESTAMPS T VISIT FAMILY [address] [place] [address], [facility] - 0 0 [facility]
--- OUTSIDE RECORDS SUMMARY | 2017-02-04 18:31 | External Medical Summary Rpt ---
Author Author , Organization [employer] Address Unknown Phone Unavailable Purpose Continuity of Care Document - 06-06-2006 through 2016 Immunization Name Date Route CVX Reacti Commen Provid Is Given on t er Refuse d Tdap, Histor [id number] No Adsorb 2013 ical ed Inform ation - Source Unspec ified Tdap, 115 Histor H196 No Adsorb 2005 uscula ical ed r Inform ation - Source Unspec ified
--- OUTSIDE RECORDS SUMMARY | 2017-02-04 18:31 | External Medical Summary Rpt ---
Author Author ERICGISSEL Farrell, [employer] Organization [employer] Address Unknown Phone Unavailable Results UA Observa Value Referen Units Interpr Notes Date tion ce etation Range UA Yellow No No No No Jan 29 Color informa informa informa informa 2017 tion in tion in tion in tion in 1:09 PM source source source source data data data data UA Clear Clear No No No Jan 29 Appear informa informa informa 2017 tion in tion in tion in 1:09 PM source source source data data data UA Negativ Negativ No No No Jan 29 Glucose e e informa informa informa 2017 tion in tion in tion in 1:09 PM source source source data data data UA Negativ Negativ No No No Jan 29 Ketones e e informa informa informa 2017 tion in tion in tion in 1:09 PM source source source data data data UA Small Negativ No Abnorma No Jan 29 Blood e informa l informa 2017 tion in tion in 1:09 PM source source data data UA pH 7.0 5.0 - No No Referen Jan 29 8.0 informa informa ce 2017 tion in tion in range 1:09 PM source source valid data data for random specime ns only. UA Negativ Negativ No No No Jan 29 Protein e e informa informa informa 2017 tion in tion in tion in 1:09 PM source source source data data data UA 0.2 <=1 No No No Jan 29 Urobili E.U./dL E.U./dL informa informa informa 2017 nogen tion in tion in tion in 1:09 PM source source source data data data UA Negativ Negativ No No No Jan 29 Nitrite e e informa informa informa 2017 tion in tion in tion in 1:09 PM source source source data data data UA Leuk Trace Negativ No Abnorma No Jan 29 Est e informa l informa 2017 tion in tion in 1:09 PM source source data data UA Spec 1.010 1.001 - No No Referen Jan 29 Grav 1.035 informa informa ce 2017 tion in tion in range 1:09 PM source source valid data data for random specime ns only. UA WBC 0-2 0 - 4 /HPF No No Jan 29 informa informa 2017 tion in tion in 1:09 PM source source data data UA RBC 0-2 0 - 3 /HPF No No Jan 29 informa informa 2017 tion in tion in 1:09 PM source source data data UA Rare No No No No Jan 29 Squam informa informa informa informa 2017 Epi tion in tion in tion in tion in 1:09 PM source source source source data data data data UA Trace No No No No Jan 29 Mucous informa informa informa informa 2017 tion in tion in tion in tion in 1:09 PM source source source source data data data data UA 1+ No No No No Jan 29 Bacteri informa informa informa informa 2017 a tion in tion in tion in tion in 1:09 PM source source source source data data data data HCG Qual Observa Value Referen Units Interpr Notes Date tion ce etation Range HCG Negativ No No No No Oct 10 QUAL e informa informa informa informa 2017 tion in tion in tion in tion in 12:03 source source source source PM data data data data Auto Diff Observa Value Referen Units Interpr Notes Date tion ce etation Range Neutrop 80.8 No % No No Oct 10 hils informa informa informa 2016 [#/volu tion in tion in tion in 11:45 me] in source source source AM Blood data data data by Automat ed count Lymphoc 15.3 No % No No Oct 10 ytes informa informa informa 2016 [#/volu tion in tion in tion in 11:45 me] in source source source AM Blood data data data by Automat ed count Monocyt 3.7 No % No No Oct 10 es informa informa informa 2017 [#/volu tion in tion in tion in 11:45 me] in source source source AM Blood data data data by Automat ed count Eos 0.0 No % No No Feb 22 Percent informa informa informa 2017 tion in tion in tion in 11:45 source source source AM data data data Baso 0.2 No % No No Feb 22 Percent informa informa informa 2017 tion in tion in tion in 11:45 source source source AM data data data Neut# 6.5 1.8 - x10(3)/ No No Feb 22 7.7 mcL informa informa 2017 tion in tion in 11:45 source source AM data data Lymph# 1.2 0.6 - x10(3)/ No No Feb 22 4.8 mcL informa informa 2017 tion in tion in 11:45 source source AM data data Queens# 0.3 0.0 - x10(3)/ No No Feb 22 1.3 mcL informa informa 2017 tion in tion in 11:45 source source AM data data Eos# 0.0 0.0 - x10(3)/ No No Feb 22 0.5 mcL informa informa 2017 tion in tion in 11:45 source source AM data data Baso# 0.0 0.0 - x10(3)/ No No Feb 22 0.2 mcL informa informa 2017 tion in tion in 11:45 source source AM data data CBC Observa Value Referen Units Interpr Notes Date tion ce etation Range LEUKOCY 8.0 4.0 - x10(3)/ No No Feb 22 OLGA 11.0 mcL informa informa 2016 tion in tion in 11:45 source source AM data data Erythro 5.04 3.80 - x10(6)/ No No Feb 22 cytes 5.10 mcL informa informa 2016 [#/volu tion in tion in 11:45 me] in source source AM Blood data data by Automat ed count Hemoglo 15.1 12.0 - gm/dL No No Feb 22 bin 15.6 informa informa 2017 [Mass/v tion in tion in 11:45 olume] source source AM in data data Blood Hematoc 43.9 35.7 - % No No Feb 22 rit 45.9 informa informa 2017 [Volume tion in tion in 11:45 source source AM Fractio data data n] of Blood by Automat ed count Erythro 87.2 82.5 - fL No No Oct 10 cyte 99.8 informa informa 2017 mean tion in tion in 11:45 corpusc source source AM ular data data volume [Entiti c volume] by Automat ed count Erythro 30.0 27.0 - pg No No Oct 10 cyte 34.3 informa informa 2017 mean tion in tion in 11:45 corpusc source source AM ular data data hemoglo bin [Entiti c mass] by Automat ed count Erythro 34.4 32.1 - gm/dL No No Oct 10 cyte 35.3 informa informa 2017 mean tion in tion in 11:45 corpusc source source AM ular data data hemoglo bin concent ration [Mass/v olume] by Automat ed count Erythro 14.1 11.5 - % No No Oct 10 cyte 15.0 informa informa 2017 distrib tion in tion in 11:45 ution source source AM width data data [Ratio] by Automat ed count Platele 242 144 - x10(3)/ No No Oct 10 ts 423 mcL informa informa 2017 [#/volu tion in tion in 11:45 me] in source source AM Blood data data by Automat ed count MPV 7.5 6.8 - fL No No Oct 10 10.8 informa informa 2017 tion in tion in 11:45 source source AM data data UA Observa Value Referen Units Interpr Notes Date tion ce etation Range UA Yellow No No No No Oct 10 Color informa informa informa informa 2017 tion in tion in tion in tion in 11:27 source source source source AM data data data data UA Clear Clear No No No Oct 10 Appear informa informa informa 2017 tion in tion in tion in 11:27 source source source AM data data data UA Negativ Negativ No No No Oct 10 Glucose e e informa informa informa 2017 tion in tion in tion in 11:27 source source source AM data data data UA 1+ (15 Negativ No Abnorma No Oct 10 Ketones mg/dl) e informa l informa 2017 tion in tion in 11:27 source source AM data data UA Trace-i Negativ No Abnorma No Oct 10 Blood ntact e informa l informa 2017 tion in tion in 11:27 source source AM data data UA pH 6.5 5.0 - No No Referen Oct 10 8.0 informa informa ce 2017 tion in tion in range 11:27 source source valid AM data data for random specime ns only. UA 100 Negativ No Abnorma No Oct 10 Protein mg/dl e informa l informa 2017 tion in tion in 11:27 source source AM data data UA 1.0 <=1 No No No Oct 10 Urobili E.U./dL E.U./dL informa informa informa 2017 nogen tion in tion in tion in 11:27 source source source AM data data data UA Negativ Negativ No No No Oct 10 Nitrite e e informa informa informa 2017 tion in tion in tion in 11:27 source source source AM data data data UA Leuk Negativ Negativ No No No Oct 10 Est e e informa informa informa 2017 tion in tion in tion in 11:27 source source source AM data data data UA Spec >=1.030 1.001 - No No ReferOct 10 Grav 1.035 informa informa ce 2017 tion in tion in range 11:27 source source valid AM data data for random specime ns only. UA RBC 0-2 0 - 3 /HPF No No Oct 10 informa informa 2017 tion in tion in 11:27 source source AM data data UA 1+ No No No No Oct 10 Squam informa informa informa informa 2017 Epi tion in tion in tion in tion in 11:27 source source source source AM data data data data UA 3+ No No No No Oct 10 Mucous informa informa informa informa 2017 tion in tion in tion in tion in 11:27 source source source source AM data data data data UA 1+ No No No No Oct 10 Bacteri informa informa informa informa 2017 a tion in tion in tion in tion in 11:27 source source source source AM data data data data UA Observa Value Referen Units Interpr Notes Date tion ce etation Range UA Yellow No No No No Oct 14 Color informa informa informa informa 2016 tion in tion in tion in tion in 8:11 PM source source source source data data data data UA Hazy Clear No Abnorma No Oct 14 Appear informa l informa 2016 tion in tion in 8:11 PM source source data data UA Negativ Negativ No No No Oct 30 Glucose e e informa informa informa 2016 tion in tion in tion in 8:11 PM source source source data data data UA Negativ Negativ No No No Oct 30 Ketones e e informa informa informa 2016 tion in tion in tion in 8:11 PM source source source data data data UA Negativ Negativ No No No Oct 30 Blood e e informa informa informa 2016 tion in tion in tion in 8:11 PM source source source data data data UA pH 7.5 5.0 - No No ReferOct 30 8.0 informa informa ce 2016 tion in tion in range 8:11 PM source source valid data data for random specime ns only. UA Trace Negativ No Abnorma No Oct 30 Protein e informa l informa 2016 tion in tion in 8:11 PM source source data data UA 1.0 <=1 No No No Oct 30 Urobili E.U./dL E.U./dL informa informa informa 2016 nogen tion in tion in tion in 8:11 PM source source source data data data UA Negativ Negativ No No No Oct 30 Nitrite e e informa informa informa 2016 tion in tion in tion in 8:11 PM source source source data data data UA Leuk Large Negativ No Abnorma No Oct 14 Est e informa l informa 2016 tion in tion in 8:11 PM source source data data UA Spec 1.020 1.001 - No No Referen Oct 30 Grav 1.035 informa informa ce 2016 tion in tion in range 8:11 PM source source valid data data for random specime ns only. UA 4+ No No No No Oct 30 Squam informa informa informa informa 2016 Epi tion in tion in tion in tion in 8:11 PM source source source source data data data data UA Trace No No No No Oct 14 Mucous informa informa informa informa 2016 tion in tion in tion in tion in 8:11 PM source source source source data data data data UA 3+ No No No No Oct 14 Amorph informa informa informa informa 2016 tion in tion in tion in tion in 8:11 PM source source source source data data data data UA 1+ No No No No Oct 14 Bacteri informa informa informa informa 2016 a tion in tion in tion in tion in 8:11 PM source source source source data data data data XR CHEST PA AND LATERAL Observa Value Referen Units Interpr Notes Date tion ce etation Range XR No No No No Apr 15 CHEST informa informa informa informa 2015 PA AND tion in tion in tion in tion in 7:36 PM LATERAL source source source source data data data data 04/15/20 15 7:10 PM\.br\ \.br\HI STORY: Pain\.b r\\.br\ TECHNIQ UE: 3 views\. br\\.br \COMPAR JYOTHI: October 21, 2005\.b r\\.br\ FINDING S:\.br\ \.br\Th e heart is normal size. Pulmona ry vascula ture is within normal limits. \.br\Yudith ngs\.br \appear clear. There is no pleural effusio n and there is no pneumot horax.\ .br\\.b r\IMPRE SSION:\ .br\\.b r\1. No acute disease or signifi cant change. \.br\ DOA Screen Observa Value Referen Units Interpr Notes Date tion ce etation Range Cannabi Absent 50 No No No Feb 11 noid ng/mL informa informa informa 2013 Screen tion in tion in tion in 9:50 AM source source source data data data Benzodi Absent 200 No No No Feb 11 azepine ng/mL informa informa informa 2013 s tion in tion in tion in 9:50 AM Screen source source source data data data Cocaine Absent 150 No No No Feb 11 Screen ng/mL informa informa informa 2013 tion in tion in tion in 9:50 AM source source source data data data Opiate Absent 300 No No No Feb 11 300 ng/mL informa informa informa 2013 Screen tion in tion in tion in 9:50 AM source source source data data data Barbitu Absent 200 No No No Feb 11 rate ng/mL informa informa informa 2014 Screen tion in tion in tion in 9:50 AM source source source data data data Ampheta Absent 500 No No No Feb 11 mine ng/mL informa informa informa 2014 Screen tion in tion in tion in 9:50 AM source source source data data data Phencyc Absent 25 No No No Feb 11 lidine ng/mL informa informa informa 2014 Screen tion in tion in tion in 9:50 AM source source source data data data Methado Absent 300 No No No Feb 11 ne ng/mL informa informa informa 2014 Screen tion in tion in tion in 9:50 AM source source source data data data Oxycodo Absent 100 No No No Feb 11 ne ng/mL informa informa informa 2013 Screen tion in tion in tion in 9:50 AM source source source data data data 6 AM Absent 10 No No No Feb 11 (Heroin ng/mL informa informa informa 2013 ) tion in tion in tion in 9:50 AM Screen source source source data data data Bupreno Absent 5 ng/mL No No No Feb 11 rphine informa informa informa 2013 Screen tion in tion in tion in 9:50 AM source source source data data data Creatin 172.5 No mg/dL No \.br\Gr Feb 11 ine Ur informa informa eater 2014 tion in tion in than 9:50 AM source source 20: data data Consist ent with valid sample\ .br\Gre ater than 2 but less than 20: Possibl e dilutio n\.br\L ess than 2: Questio nable valid sample Procedu These No No No No Jan 26 re Note drug informa informa informa informa 2014 Screen classes tion in tion in tion in tion in 9:50 AM have source source source source been data data data data screene d by immunoa ssay and are for medical purpose s only. The results should not be used for non-med ical purpose s. If confirm ation is desired , please place a separat e order for each drug confirm ation. Specime ns will be saved for 3 busines s days should additio nal orders/ testing be desired . ABSC IgG Observa Value Referen Units Interpr Notes Date tion ce etation Range ABSC Negativ No No No No Feb 11 IgG Int e informa informa informa informa 2013 tion in tion in tion in tion in 8:42 AM source source source source data data data data ABORh Observa Value Referen Units Interpr Notes Date tion ce etation Range ABORh O POS No No No No Feb 11 Int informa informa informa informa 2013 tion in tion in tion in tion in 8:37 AM source source source source data data data data Hemogram Observa Value Referen Units Interpr Notes Date tion ce etation Range LEUKOCY 9.0 4.0 - x10(3)/ No No Feb 11 OLGA 11.0 mcL informa informa 2013 tion in tion in 7:53 AM source source data data Erythro 3.89 3.80 - x10(6)/ No No Feb 11 cytes 5.10 mcL informa informa 2013 [#/volu tion in tion in 7:53 AM me] in source source Blood data data by Automat ed count Hemoglo 12.0 12.0 - gm/dL No No Feb 11 bin 15.6 informa informa 2013 [Mass/v tion in tion in 7:53 AM olume] source source in data data Blood Hematoc 34.2 35.7 - % Low No Feb 11 rit 45.9 informa 2013 [Volume tion in 7:53 AM source Fractio data n] of Blood by Automat ed count Erythro 87.9 82.5 - fL No No Feb 11 cyte 99.8 informa informa 2013 mean tion in tion in 7:53 AM corpusc source source ular data data volume [Entiti c volume] by Automat ed count Erythro 30.8 27.0 - pg No No Feb 11 cyte 34.3 informa informa 2013 mean tion in tion in 7:53 AM corpusc source source ular data data hemoglo bin [Entiti c mass] by Automat ed count Erythro 35.1 32.1 - gm/dL No No Feb 11 cyte 35.3 informa informa 2013 mean tion in tion in 7:53 AM corpusc source source ular data data hemoglo bin concent ration [Mass/v olume] by Automat ed count Erythro 14.1 11.5 - % No No Feb 11 cyte 15.0 informa informa 2013 distrib tion in tion in 7:53 AM ution source source width data data [Ratio] by Automat ed count Platele 195 144 - x10(3)/ No No Feb 11 ts 423 mcL informa informa 2013 [#/volu tion in tion in 7:53 AM me] in source source Blood data data by Automat ed count MPV 7.3 6.8 - fL No No Feb 11 10.8 informa informa 2013 tion in tion in 7:53 AM source source data data Rubella G Observa Value Referen Units Interpr Notes Date tion ce etation Range Rubella 2.510 No Index_V No < 0.90 Feb 05 IgG informa alue informa - 2013 tion in tion in Negativ 11:04 source source e\.br\N AM data data o signifi cant level of detecta ble rubella IgG Antibod y\.br\( Presume d Non-Imm une)\.b r\\.br\ 0.90 to 0.99 - Equivoc al\.br\ Repeat testing in 10-14 days is recomme nded\.b r\\.br\ > or = 1.00 - Positiv e\.br\P revious exposur e or vaccina tion (Immune )\.br\\ .br\Not e: The magnitu de of the measure d result is not indicat reuben of the amount of antibod y present . Hep Bs Ag Observa Value Referen Units Interpr Notes Date tion ce etation Range Hepatit Negativ Negativ No No No Feb 05 is B e e informa informa informa 2013 virus tion in tion in tion in 9:05 AM surface source source source Ag data data data [Presen ce] in Serum by Immunoa ssay ABSC IgG Observa Value Referen Units Interpr Notes Date tion ce etation Range ABSC Negativ No No No No Feb 05 IgG Int e informa informa informa informa 2013 tion in tion in tion in tion in 1:26 AM source source source source data data data data ABORh Observa Value Referen Units Interpr Notes Date tion ce etation Range ABORh O POS No No No No Feb 05 Int informa informa informa informa 2013 tion in tion in tion in tion in 1:26 AM source source source source data data data data Hemogram Observa Value Referen Units Interpr Notes Date tion ce etation Range LEUKOCY 9.9 4.0 - x10(3)/ No No Feb 04 OLGA 11.0 mcL informa informa 2014 tion in tion in 9:49 PM source source data data Erythro 3.69 3.80 - x10(6)/ Low No Feb 04 cytes 5.10 mcL informa 2013 [#/volu tion in 9:49 PM me] in source Blood data by Automat ed count Hemoglo 11.5 12.0 - gm/dL Low No Feb 04 bin 15.6 informa 2013 [Mass/v tion in 9:49 PM olume] source in data Blood Hematoc 32.3 35.7 - % Low No Feb 04 rit 45.9 informa 2013 [Volume tion in 9:49 PM source Fractio data n] of Blood by Automat ed count Erythro 87.5 82.5 - fL No No Feb 04 cyte 99.8 informa informa 2014 mean tion in tion in 9:49 PM corpusc source source ular data data volume [Entiti c volume] by Automat ed count Erythro 31.1 27.0 - pg No No Feb 04 cyte 34.3 informa informa 2014 mean tion in tion in 9:49 PM corpusc source source ular data data hemoglo bin [Entiti c mass] by Automat ed count Erythro 35.6 32.1 - gm/dL High No Feb 04 cyte 35.3 informa 2013 mean tion in 9:49 PM corpusc source ular data hemoglo bin concent ration [Mass/v olume] by Automat ed count Erythro 14.0 11.5 - % No No Feb 04 cyte 15.0 informa informa 2014 distrib tion in tion in 9:49 PM ution source source width data data [Ratio] by Automat ed count Platele 181 144 - x10(3)/ No No Kenny ts 423 mcL informa informa 2014 [#/volu tion in tion in 9:49 PM me] in source source Blood data data by Automat ed count MPV 7.1 6.8 - fL No No Feb 04 10.8 informa informa 2014 tion in tion in 9:49 PM source source data data DOA Screen Observa Value Referen Units Interpr Notes Date tion ce etation Range Cannabi Absent 50 No No No Kenny 19 noid ng/mL informa informa informa 2014 Screen tion in tion in tion in 9:43 PM source source source data data data Benzodi Absent 200 No No No Feb 04 azepine ng/mL informa informa informa 2014 s tion in tion in tion in 9:43 PM Screen source source source data data data Cocaine Absent 150 No No No Feb 04 Screen ng/mL informa informa informa 2014 tion in tion in tion in 9:43 PM source source source data data data Opiate Absent 300 No No No Kenny 19 300 ng/mL informa informa informa 2014 Screen tion in tion in tion in 9:43 PM source source source data data data Barbitu Absent 200 No No No Kenny 19 rate ng/mL informa informa informa 2014 Screen tion in tion in tion in 9:43 PM source source source data data data Ampheta Absent 500 No No No Kenny 19 mine ng/mL informa informa informa 2014 Screen tion in tion in tion in 9:43 PM source source source data data data Phencyc Absent 25 No No No Kenny lidine ng/mL informa informa informa 2014 Screen tion in tion in tion in 9:43 PM source source source data data data Methado Absent 300 No No No Kenny 19 ne ng/mL informa informa informa 2014 Screen tion in tion in tion in 9:43 PM source source source data data data Oxycodo Absent 100 No No No Kenny 19 ne ng/mL informa informa informa 2014 Screen tion in tion in tion in 9:43 PM source source source data data data 6 AM Absent 10 No No No Kenny 19 (Heroin ng/mL informa informa informa 2014 ) tion in tion in tion in 9:43 PM Screen source source source data data data Bupreno Absent 5 ng/mL No No No Feb 04 rphine informa informa informa 2013 Screen tion in tion in tion in 9:43 PM source source source data data data Creatin 98.4 No mg/dL No \.br\Gr Feb 04 ine Ur informa informa eater 2014 tion in tion in than 9:43 PM source source 20: data data Consist ent with valid sample\ .br\Gre ater than 2 but less than 20: Possibl e dilutio n\.br\L ess than 2: Questio nable valid sample Procedu These No No No No Feb 04 re Note drug informa informa informa informa 2013 Screen classes tion in tion in tion in tion in 9:43 PM have source source source source been data data data data screene d by immunoa ssay and are for medical purpose s only. The results should not be used for non-med ical purpose s. If confirm ation is desired , please place a separat e order for each drug confirm ation. Specime ns will be saved for 3 busines s days should additio nal orders/ testing be desired . XR FINGER RIGHT MINIMUM 2 VW Observa Value Referen Units Interpr Notes Date ti ce etation Range TEXT 01/29/20 No No No No Jan 28 DIAGNOS 13\.br\ informa informa informa informa 2012 IS \.br\Th tion in tion in tion in tion in 10:36 BATTERY ree-vie source source source source PM w right data data data data thumb series: \.br\\. br\HIST ORY: Trauma. Pain. Compari son with 6 exam.\. br\\.br \Minima l soft tissue swellin g of the right thumb. No focal fractur e,\.br\ disloca tion or degener ative\. br\[place] ge.\.br \\.br\I MPRESSI ON: Minimal soft tissue injury. No focal fractur e deformi ty. XR CALCANEUS LEFT AP AND LATERAL Observa Value Referen Units Interpr Notes Date ti ce etation Range TEXT LEFT No No No No January 02 DIAGNOS CALCANE informa informa informa informa 2011 IS US, 3 tion in tion in tion in tion in 12:26 BATTERY VIEWSHI source source source source AM STORY: data data data data Pain. Limited range of motionE XAM DATE: January 03, 2012 12:26:3 6 AMIMPRE SSION: There is no evidenc e of fractur e, disloca tion or foreign body XR ANKLE LEFT AP LATERAL AND OBLIQUE Observa Value Referen Units Interpr Notes Date ti ce etation Range TEXT XR No No No No December 26 DIAGNOS ANKLE informa informa informa informa 2011 IS LEFT AP tion in tion in tion in tion in 10:45 BATTERY source source source source PM LATERAL data data data data AND OBLIQUE December 27, 2011 10:46:2 0 PMHISTO RY: Ankle pain.CO MPARISO N: January 17, 2006.FI NDINGS: 3 views left ankle show no fractur e or widenin g of the mortise .Osseou s structu resare normal. IMPRESS ION:1. Normal left ankle 3 views. XR FOOT LEFT AP LATERAL AND OBLIQUE Observa Value Referen Units Interpr Notes Date ce etation Range TEXT LEFT No No No No December 26 DIAGNOS FOOT informa informa informa informa 2011 IS AND tion in tion in tion in tion in 10:45 BATTERY TOES, 3 source source source source PM VIEWS data data data data December 27, 2011 10:46:2 0 PMINDIC ATIONS: Trauma, pain.Th ree views left foot and toes show no fractur e, disloca tion, or osseous abnorma lity. Alignme ntis preserv ed.IMPR ESSION: 1. Normal left foot and toes, 3 views.
--- OUTSIDE RECORDS SUMMARY | 2017-02-04 18:31 | External Medical Summary Rpt ---
Author Author , Organization [employer] Address Unknown Phone Unavailable Purpose Continuity of Care Document - 06-06-2006 through 2016 Immunization Name Date Route CVX Reacti Commen Provid Is Given on t er Refuse d Tdap, Histor [id number] No Adsorb 2013 ical ed Inform ation - Source Unspec ified Tdap, 115 Histor H196 No Adsorb 2005 uscula ical ed r Inform ation - Source Unspec ified
--- OUTSIDE RECORDS SUMMARY | 2017-02-04 18:31 | External Medical Summary Rpt ---
[...] in 11:45 source source AM data data [place]# 0.3 0.0 - x10(3)/ No No Feb [...]
[2017-02-04] MEDS ORDERED: BACTRIM DS 8001 TA1 PO (18:45)
--- NOTE | 2017-02-04 18:49 | [facility] Report ---
History of Present Issue Date/Time Seen by Provider 02/04/177 Visit Reason Pt arrived:Walked Presenting Problem:FREQUENT URINATION, LOZADA WITH URINATION AND URINE HAS BEEN ALOT DARKER. PAIN IN LOWER ABD WITH THESE SYMPTOMS Location if Accident: Onset of symptoms date/time:02/01/17 or onset unknown for: Have you (or family members/close friends) recently traveled outside the [place]? N If Yes, where/when: Have you had exposure to infectious disease within the past month? TB? Other? Specify: c/o frequent urination, hesitancy, and slight dysuria just today w/ low back pain and suprapubic discomfort x 2-3 days. No change urine color or odor "that I have noticed". Nausea yesterday but not today. No fever or chills. Denies vaginal discharge or hematuria. Hasn't taken or tried anything for symptoms. Hx of UTIs but not that frequently. Pt declines pyridium "because it makes me sicker and I don't like the way I feel when I take it". Source patient Exam Limitations no limitations ALLERGIES Coded Allergies: Penicillins (05/11/16) diphenhydramine (From BENADRYL) (02/04/17) ketorolac (From TORADOL) (02/04/17) Home Medications Reported Medications No Known Home Medications History Medical History General CAD? No Angina: No [place]: No Hypertension? No Hyperlipidemia? No CHF? No DVT? No PE? No COPD? No Asthma? Yes Anemia? No GERD? Yes Gastric ulcers? No GI Bleed? No Hernia? No Thyroid Problems? No Hypothyroidism? No CVA? No Seizures? No Diabetes? No Renal Insuffiency? No UTI? No Stones? No GB Disease: No Nephritic Syndrome? No Asplenia? No Hepatitis? No Sickle Cell Disease? No Arthritis? No Migraines? Yes Cataracts? No Glaucoma? No MRSA? No HIV? No TB? No Anxiety? No Depression? No Cancer? 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 denies: dyspareunia. Physical Exam Vital Signs Vital Signs Date Time Temp Pulse Resp B/P Pulse O2 O2 Flow FiO2 Ox Delivery Rate 02/04 1810 99.8 102 20 116/82 99 02/04 1801 99.8 102 20 116/82 99 General Appearance normal appearance, no apparent distress Respiratory Status No: respiratory distress. Cardiovascular no peripheral edema Gastrointestinal normal bowel sounds, non tender (yesenia upper quad), soft, no guarding, no rebound, tenderness (mild yesenia lower quad), mild suprapubic tenderness, no bladder distention Back gait normal, CVA tenderness (R), CVA tenderness (L) Neurologic alert, oriented x 3 Mental status normal mood/affect Skin normal color, warm/dry Medical Decision Making LABS/Meds/Orders Pt receiving controlled substance in ED? No Results/Orders Laboratory Tests 02/04/171825: Urine Color DARK YELLOW, Urine Appearance Clear, Urine pH 6.0, Ur Specific Line [place] 1.025, Urine Protein 100, Urine Ketones TRACE H, Urine Blood TRACE H, Urine Nitrate POSITIVE H, Urine Bilirubin 1+ H, Urine Urobilinogen 0.2, Ur Leukocyte Esterase TRACE H, Urine Glucose NEGATIVE Current Medication Orders Sig/Cele Start time Last Medication Dose Route Stop Time Status Admin Trimethoprim/ 1 TABLET ONCE ONE 02/04 1845 [facility] Sulfamethoxazole PO 02/04 1846 Orders Procedure Date/time Status CULTURE, URINE 02/04 1842 Active [facility] URINE DIPSTICK 02/04 1826 Complete Departure Departure Time of Disposition 1844 Disposition DC Home or Self Care(routine) Clinical Impression Primary Impression: UTI (urinary tract infection) Qualifiers: Urinary tract infection type: site unspecified Hematuria presence: with hematuria Qualified Code: N39.0 - Urinary tract infection, site not specified Condition STABLE Referrals MARIAH CLARK (Family) * Be SURE to follow up anytime for new or worsening symptoms, if no improvement in 48 hours AND in 10-14 days to repeat UA and ensure infection resolved and blood no longer present. Patient Instructions DI for Hematuria, DI for Urinary Tract Infection (UTI) Additional Instructions * increase fluids, Water and NOT soda or tea * Start antibiotic tomorrow morning as you had your first dose here in the clinic. Be sure to take as ordered for the FULL length of time although you should start to see improvement over the next 48 hours. * No pyridium since you don't like the side effects. * Be SURE to follow up anytime for new or worsening symptoms, if no improvement in 48 hours AND in 10-14 days to repeat UA and ensure infection resolved and blood no longer present. * Be sure to let your PCP (or whoever you follow up with) know we sent urine culture so they can request records and ensure you are on the appropriate antibiotic if you are not getting better or getting worse!!! Discharge Counseling Counseled pt/family regarding diagnosis, test results, medications/RX, home care, follow up needs Prescriptions Current Visit Scripts SULFAMETHOXAZOLE W/TRIMETHOPRI (Bactrim Ds Tab) 1 TABLET PO BID #13 TAB first dose given in clinic at 5120
[2017-02-04 19:08] VITALS: BP 116/82
== END 2017-02-04 19:09 | disposition home or self-care (01) ==
LOC: ER 17:52 → UTC 18:09 → ER 18:09 → UTC 19:09
PROVIDERS: Nurse Practitioner Family
DX: N39.0 Urinary tract infection, site not specified (principal); K21.9 Gastro-esophageal reflux disease without esophagitis